=== PATIENT | female | born 1950 | race Caucasian/White ===

== ENCOUNTER 2019-06-11 10:26 | Outpatient (CLI) | payer MEDICARE, OTHER, SELFPAY ==
--- NOTE | 2019-06-11 10:44 | XR_ITS ---
WS: [id number] RIGHT RIBS, MULTIPLE VIEWS HISTORY: RIB PAIN ON RIGHT SIDE COMPARISON: 11/22/2017 Ribs: No rib fractures or bone destruction identified. Lungs and mediastinum: Visualized lung is clear. No pneumothorax or pulmonary contusion. Medial RIGHT humeral head osteophyte. XR/XR ribs RT 2V* [id number] IMPRESSION: No RIGHT rib fractures identified.
== END 2019-06-11 10:27 | disposition home or self-care (01) ==
LOC: RAD 10:34
PROVIDERS: Family Provider Family Medicine; PCP Family Medicine; Visit Provider Family Medicine
DX: R07.81 Pleurodynia (principal)
CPT/HCPCS: 71100

== ENCOUNTER → 2019-06-25 09:02 | Outpatient (BNVA) | payer MEDICARE, OTHER, SELFPAY | PROVIDERS: Family Provider Family Medicine; PCP Family Medicine; Visit Provider Family Medicine | DX: E11.9 Type 2 diabetes mellitus without complications (principal); E78.5 Hyperlipidemia, unspecified; K21.9 Gastro-esophageal reflux disease without esophagitis | CPT/HCPCS: 80053 ==

== ENCOUNTER 2019-08-20 13:24 | Outpatient (CLI) | payer MEDICARE, OTHER, SELFPAY ==
--- NOTE | 2019-08-20 13:51 | XR_ITS ---
WS: [id number] XR foot RT min 3V* [id number] REASON FOR EXAM: right foot pain FINDINGS: The phalanges, metatarsals, tarsals are all normal. The calcaneus was normal. The right left foot show no definite pathology. XR/XR foot RT min 3V* [id number] IMPRESSION: Negative bilateral feet.
--- NOTE | 2019-08-20 13:51 | XR_ITS ---
WS: [id number] XR foot LT 2V [id number] REASON FOR EXAM: left foot pain FINDINGS: Left foot shows normal appearance of the phalanges, metatarsals, and tarsals. The calcaneus is normal. XR/XR foot LT 2V [id number] IMPRESSION: Negative left foot.
== END 2019-08-20 13:25 | disposition home or self-care (01) ==
LOC: RAD 13:39
PROVIDERS: Family Provider Family Medicine; PCP Family Medicine; Visit Provider Podiatrist Foot & Ankle Surgery
DX: M79.671 Pain in right foot (principal); M79.672 Pain in left foot
CPT/HCPCS: 73620; 73630

== ENCOUNTER 2020-01-09 19:44 | Emergency (ER) | payer MEDICARE, OTHER, SELFPAY ==
[2020-01-09] VITALS (11 sets, daily range): BP systolic 155–220; BP diastolic 88–117; PULSE 84–102; RESP 17–22; TEMP 36.8; O2SAT 92–100; BMI 31.5
--- NOTE | 2020-01-09 20:23 | CTR_ITS ---
PROCEDURE INFORMATION: Exam: CT Head Without Contrast Exam date and time: 01/09/2020 8:29 PM Age: 69 years old Clinical indication: Pain; Headache; Additional info: GERMAIN TECHNIQUE: Imaging protocol: Computed tomography of the head without contrast. Radiation optimization: All CT scans at this facility use at least one of these dose optimization techniques: automated exposure control; mA and/or kV adjustment per patient size (includes targeted exams where dose is matched to clinical indication); or iterative reconstruction. COMPARISON: MRI Pituitary w/wo* [id number] 10/15/2015 9:00 AM RADIATION DOSE METRICS: Total DLP (mGy-cm): 840.41 FINDINGS: Brain: There is focal area of hemorrhage in the right posterior parietal region measuring 10.7 x 3.4 x 2.3 cm. The hemorrhage has a volume of approximately 4.5 cc. There is surrounding perifocal edema. There are a few tiny hemorrhage is adjacent to the larger hemorrhage in the region of edema. Ventricles: Ventricles are within normal limits of size. Bones/joints: Unremarkable. No acute fracture. Sinuses: Visualized sinuses are unremarkable. No fluid levels. Mastoid air cells: Visualized mastoid air cells are well aerated. Soft tissues: Unremarkable. CT/CT head wo con* [id number] IMPRESSION: Acute parenchymal hemorrhage as described. COMMENTS: Dr. Ramos expressed awareness of the acute intracranial hemorrhage via the OCS. Radiation Dose CTDIVOL = (mGy): DLP = 840.41 (mGy-cm)
--- NOTE | 2020-01-09 20:42 | W.ED.NEUROSD ---
HPI - Neuro Symptoms/Deficit General: Chief Complaint: Neuro Symptoms/Deficit Stated Complaint: migraine Time Seen by Provider: 01/09/20 20:23 Source: patient Mode of arrival: ambulatory Limitations: no limitations History of Present Illness: HPI Narrative: 69-year-old female states she is been having severe headache over the last 2 days. She states she has had some slight confusion as well. She states her headache is a 9 out of 10. She states it is gradually worsened. Denies any vomiting or diarrhea. Onset (ago): hour(s) Severity: moderate Associated symptoms: Reports headache(s); Deny chest pain, nausea or vomiting Review of Systems Const: Denies: fever(s), chills, body aches or change in appetite Eyes: Denies: blurry vision or eye discomfort ENMT: Denies: throat pain or dental pain Card: Denies: chest pain Resp: Denies: dyspnea GI: Denies: abdominal pain, nausea, vomiting or diarrhea : Denies: dysuria Musc: Denies: neck pain or back pain Skin/Breast: Denies: rash Neuro: Reports: headache(s) Psych: Denies: depression Rolan/Lymph: Denies: easy bruising All/Imm: Denies: urticaria PFSH ED PFSH: Medical History Carotid artery occlusion Chronic low back pain Controlled type 2 diabetes mellitus, without long-term current use of insulin Dyslipidemia Essential (primary) hypertension GERD (gastroesophageal reflux disease) Intervertebral disc disorders with radiculopathy, lumbosacral region Non-alcoholic fatty liver disease Osteoarthritis of multiple joints Surgical History History of hip replacement, total right S/P appendectomy S/P cholecystectomy S/P partial hysterectomy Family History Father CAD (coronary artery disease) Mother Cancer breast Family/Other Diabetes Social History Smoking and tobacco status: never smoked Lives independently: Yes Household members: spouse Marital status: Physical Exam Const: COMMON NORMALS: no acute distress, patient oriented x3 and healthy appearing HENMT: COMMON NORMALS: normocephalic and atraumatic HEAD & SCALP: normocephalic and atraumatic Eye: COMMON NORMALS: Equal, round and reactive pupils present and EOMs intact bilaterally PUPIL: Yes Equal, round and reactive pupils present Neck/C-Spine: COMMON NORMALS: full ROM and supple Chest: COMMONS NORMALS: normal inspection of the chest and normal palpation of entire chest wall Resp: COMMON NORMALS: normal respiratory effort, No retractions, No use of accessory muscles and clear to auscultation bilaterally AUSCULTATION: clear to auscultation bilaterally Cardio: COMMON NORMALS: regular rate, regular rhythm and No murmurs present (Cardio) RATE: regular rate RHYTHM: regular rhythm GI: COMMON NORMALS: Normal to inspection, nondistended, normoactive bowel sounds present, Soft to palpation, non-tender and no masses PALPATION: Yes Soft to palpation Extremity: COMMON NORMALS: normal to inspection and full ROM Neuro: COMMON NORMALS: patient oriented x3, moves all extremities and no focal motor deficits Psych: COMMON NORMALS: mental status grossly normal, Normal thought process present and cooperative THOUGHT PROCESS: Normal thought process present Skin: COMMON NORMALS: no rashes or lesions noted and no wounds GENERAL SKIN EXAM: no rashes or lesions noted Course Vital Signs: Vital signs: Vital Signs Temperature 98.3 F 01/09/20 20:18 Pulse Rate 99 01/09/20 21:32 Respiratory Rate 18 01/09/20 21:32 Blood Pressure 195/97 01/09/20 21:32 Pulse Oximetry 94 01/09/20 21:32 MDM - Neuro Symptoms/Deficit MDM Narrative: Medical decision making narrative: Millie presents here with a headache and is found to have an intracerebral hemorrhage likely from high blood pressure. Patient given labetalol and started on a Cardene drip. I did call Ghislaine and Mitch and both are on divert. I spoke to neurosurgeon at [facility] [place] and will transfer patient there emergently. Patient has been stable here with a GCS of 15. Lab Data: Labs: Lab Results 01/09/20 01/09/20 Range/Units 20:51 20:51 WBC 14.6 H (4.0-10.0) 10^3/ uL RBC 5.12 (4.1-5.3) 10^6/u L Hgb 14.5 (11.5-15.3) g/dL Hct 43.7 (37.0-47.0) % MCV 85.4 (81-99) fL MCH 28.3 (28.0-34.0) pg MCHC 33.2 (30.0-36.0) g/dL RDW 12.2 (12.1-15.1) % Plt Count 209 (130-400) 10^3/c mm MPV 11.1 H (7.4-10.4) fL Neut % (Auto) 85.1 % Lymph % (Auto) 9.4 % Sargent % (Auto) 4.9 % Eos % (Auto) 0.0 % Baso % (Auto) 0.1 % Neut # (Auto) 12.45 H (1.8-7.7) 10^3/u L Lymph # (Auto) 1.4 (0.8-4.8) 10^3/u L Sargent # (Auto) 0.7 (0.2-0.9) 10^3/u L Eos # (Auto) 0.0 (0.0-0.8) 10^3/u L Baso # (Auto) 0.0 (0.0-0.1) 10^3/u L Nucleated RBC % (a uto) 0 % Nucleated RBCs # 0.0 /100WBC Sodium 136 (136-145) mmol/L Potassium 3.4 L (3.5-5.1) mmol/L Chloride 97 L (98-107) mmol/L Carbon Dioxide 26 (22-29) mmol/L Anion Gap 16.4 (5-19) BUN 12 (8-23) mg/dL Creatinine 0.7 (0.5-0.9) mg/dL GFR Calculation Not Reportable Glucose 216 H (65-115) mg/dL Calculated Osmolal ity 285 (285-295) mOsm/k g Calcium 10.0 (8.5-10.5) mg/dL Total Bilirubin 1.6 H (0.15-1.2) mg/dL AST 18 (0-32) U/L ALT 13 (0-33) U/L Alkaline Phosphata se 136 H (35-105) IU/L Total Protein 7.7 (6.6-8.7) g/dL Albumin 4.9 (3.5-5.2) g/dL Globulin 2.8 (1.3-4.6) g/dL Imaging Data^: CT Head: Radiologist's impression: [address] [place] [address] CT Scan Report Signed Patient: Millie Finley Unit #: [id number] : 1950 Age/Sex: 69 / F ADM Date: 01/09/20 Loc: ER Room/Bed: Attending Dr: Ordering Provider/Ordering MD: Claudia Ramos MD Date of Service: 01/09/20 Procedure(s): CT head wo con* [id number] Accession Number(s): [id number] Report Number: [id number] PROCEDURE INFORMATION: Exam: CT Head Without Contrast Exam date and time: 01/09/2020 8:29 PM Age: 69 years old Clinical indication: Pain; Headache; Additional info: GERMAIN TECHNIQUE: Imaging protocol: Computed tomography of the head without contrast. Radiation optimization: All CT scans at this facility use at least one of these dose optimization techniques: automated exposure control; mA and/or kV adjustment per patient size (includes targeted exams where dose is matched to clinical indication); or iterative reconstruction. COMPARISON: MRI Pituitary w/wo* [id number] 10/15/2015 9:00 AM RADIATION DOSE METRICS: Total DLP (mGy-cm): 840.41 FINDINGS: Brain: There is focal area of hemorrhage in the right posterior parietal region measuring 10.7 x 3.4 x 2.3 cm. The hemorrhage has a volume of approximately 4.5 cc. There is surrounding perifocal edema. There are a few tiny hemorrhage is adjacent to the larger hemorrhage in the region of edema. Ventricles: Ventricles are within normal limits of size. Bones/joints: Unremarkable. No acute fracture. Sinuses: Visualized sinuses are unremarkable. No fluid levels. Mastoid air cells: Visualized mastoid air cells are well aerated. Soft tissues: Unremarkable. CT/CT head wo con* [id number] IMPRESSION: Acute parenchymal hemorrhage as described. Critical Care Time Critical Care Time: Critical Care Time: Yes Total Critical Care Time: 36 Attestation: This case had a high probability of a clinically significant, sudden, or life threatening deterioration of this patient's condition which required my full and direct attention, intervention and personal management. Discharge Plan Discharge Patient Disposition: Xfer Other Clinical Impression: Cerebral parenchymal hemorrhage Qualifiers: Intracerebral hemorrhage etiology: nontraumatic Cerebral hemorrhage location: unspecified cerebral location Laterality: right Qualified Code(s): I61.9 - Nontraumatic intracerebral hemorrhage, unspecified Condition: Stable Referrals: Veronika Batres DO [Primary Care Provider] - Coding Level of Care Code ED Communication Professor for Chg Fwd Exam Comprehensive
[2020-01-09] MEDS: nicardipine 20 MG/200 ML PREMIX 100 MG IV (21:04)
[2020-01-09 21:07] LABS: Basophils % 0.1 %; Hematocrit 43.7 % (37.0-47.0); Hemoglobin 14.5 g/dL (11.5-15.3); Lymphocytes # 1.4 10^3/uL (0.8-4.8); Lymphocytes % 9.4 %; Mean Corpuscular HGB Conc 33.2 g/dL (30.0-36.0); Mean Corpuscular Hemoglobin 28.3 pg (28.0-34.0); Mean Corpuscular Volume 85.4 fL (81-99); Mean Platelet Volume 11.1 fL (7.4-10.4); Monocytes # 0.7 10^3/uL (0.2-0.9); Monocytes % 4.9 %; Neutrophils # 12.45 10^3/uL (1.8-7.7); Neutrophils % 85.1 %; Nucleated Red Blood Cells % 0 %; Platelet Count 209 10^3/cmm (130-400); Red Blood Count 5.12 10^6/uL (4.1-5.3); Red Cell Distribution Width 12.2 % (12.1-15.1); White Blood Count 14.6 10^3/uL (4.0-10.0)
[2020-01-09] MEDS: morphine 4 mg/mL SDV 1 mL IVP (21:24)
[2020-01-09 21:29] LABS: Alanine Aminotransferase 13 U/L (0-33); Albumin Level 4.9 g/dL (3.5-5.2); Alkaline Phosphatase 136 IU/L (35-105); Anion Gap 16.4 (5-19); Aspartate Amino Transferase 18 U/L (0-32); Blood Urea Nitrogen 12 mg/dL (8-23); Carbon Dioxide 26 mmol/L (22-29); Chloride 97 mmol/L (98-107); Globulin 2.8 g/dL (1.3-4.6); Glucose 216 mg/dL (65-115); Osmolality Calculated 285 mOsm/kg (285-295); Potassium 3.4 mmol/L (3.5-5.1); Sodium 136 mmol/L (136-145); Total Bilirubin 1.6 mg/dL (0.15-1.2); Total Protein 7.7 g/dL (6.6-8.7)
[2020-01-09] MEDS: labetalol 5 mg/mL SDV 20mL 10 MG IVP ×2 (21:33→21:40)
--- NOTE | 2020-01-09 21:41 | PC.NURSE ---
advised Dr. Ramos of BP, Dr. Ramos ordered Cardene to be maintained at 15 mg/hr at this time
[2020-01-09] MEDS: diphenhydrAMINE 50 mg/mL SDV 1mL 25 MG IVP (22:05)
[2020-01-09] MEDS: sodium chloride 0.9% 1,000 ML 999 ML IV (22:06)
[2020-01-09] MEDS: metoclopramide 5 mg/mL SDV 2 mL IVP (22:06)
== END 2020-01-09 22:11 | disposition other institution (70) ==
PROVIDERS: Emergency Provider Emergency Medicine; PCP Family Medicine
DX: I61.9 Nontraumatic intracerebral hemorrhage, unspecified (principal); E11.9 Type 2 diabetes mellitus without complications; E78.5 Hyperlipidemia, unspecified; I10 Essential (primary) hypertension
CPT/HCPCS: 12345; 70450; 80053; 85025; 96365; 96366; 96375; 99283; 99285; J1200; J1953; J2270; J2765; J3490; J7030

== ENCOUNTER 2020-01-14 09:41 | Outpatient (RCR) | payer MEDICARE, OTHER, SELFPAY | END 2020-01-14 23:00 | disposition home or self-care (01) | LOC: SPO 09:41 | PROVIDERS: PCP Family Medicine; Referring Provider Internal Medicine; Visit Provider Internal Medicine | DX: I69.90 Unspecified sequelae of unspecified cerebrovascular disease (principal) | CPT/HCPCS: 97161; 97166 ==

== ENCOUNTER → 2020-01-16 12:12 | Outpatient (BNVA) | payer MEDICARE, OTHER, SELFPAY | PROVIDERS: PCP Family Medicine; Visit Provider Family Medicine | DX: E11.9 Type 2 diabetes mellitus without complications (principal); E78.5 Hyperlipidemia, unspecified; I10 Essential (primary) hypertension | CPT/HCPCS: 80053; 80061; 82043; 83036; 85025; 87086 ==

== ENCOUNTER → 2020-04-13 09:06 | Outpatient (BNVA) | payer MEDICARE, OTHER, SELFPAY | PROVIDERS: PCP Family Medicine; Visit Provider Family Medicine | DX: E11.9 Type 2 diabetes mellitus without complications (principal) | CPT/HCPCS: 80053; 80061; 83036 ==

== ENCOUNTER 2020-07-27 11:34 | Observation (INO) | payer MEDICARE, OTHER, SELFPAY ==
[2020-07-27] VITALS (8 sets, daily range): BP systolic 118–156; BP diastolic 58–112; PULSE 67–117; RESP 16–18; TEMP 36.5–36.9; O2SAT 94–96; BMI 33.5
--- NOTE | 2020-07-27 11:46 | XR_ITS ---
WS: [id number] Exam: XR chest 1V portable [id number] Date/Time of Exam: 07/27/2020 11:55 AM Reason For Exam: reduced breath sounds Comparison 06/11/2019. Findings: The lungs are clear and fully expanded. Costophrenic angles are sharp. No infiltrates. Bronchovascula r relief appears normal. Cardiac silhouette is unremarkable. Bony elements are intact. XR/XR chest 1V portable [id number] IMPRESSION: Unremarkable chest radiograph.
--- NOTE | 2020-07-27 11:49 | ECG_ITS ---
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 Measurements Intervals [place] Rate: 96 P: 23 RI: 176 QRS: -37 QRSD: 103 T: 29 QT: 355 QTc: 450 Interpretive Statements SINUS RHYTHM LEFT AXIS DEVIATION [QRS AXIS < -30] VOLTAGE CRITERIA FOR LVH [MEETS CRITERIA IN ONE OF: R(aVL), S(V1), R(V5), R(V5/V6)+S(V1)] POSSIBLE ANTERIOR MYOCARDIAL INFARCTION , PROBABLY OLD [30 ms Q WAVE IN V3/V4, OR R < 0.2 mV IN V4] No previous ECG available for comparison Electronically Signed On 07-27-2020 12:36:01 JACK SETTER by Kassidy Bearden M.D. [email or web address]
[2020-07-27 11:51] LABS: Glucose Point of Care 500 mg/dL (70-110)
[2020-07-27 11:58] LABS: ABG PCO2 40.8 mmHg (35-45); ABG PH Result 7.44 (7.35-7.45); Alveolar-Arterial Oxygen Gradi 3.2 mmHg (5-10); Arterial Blood Gas Hematocrit 47.6 % (37-47); Base Excess ABG 3.3 mmol/L (-2.0-2.0); Blood Gas Allen Test Pos; Blood Gas Operator Identificat CAK; Blood Gas Sample Site Radial, left; Blood Gas Sample Type Arterial; HCO3 ABG 27.8 mmol/L (22-26); HGB O2 Sat 94.6 % (95-100); Ionized Calcium Level - ABG 1.2 mmol/L (1.1-1.4); Methemoglobin 0.7 % (0.4-1.5); Oxygen Device ROOM AIR; Oxygen Saturation ABG 96.1; PO2 ABG 74.5 mmHg (80.0-100.0); Potassium Level - ABG 3.7 mmol/L (3.5-5.0); Total Hemoglobin 15.5 g/dL (12-16)
[2020-07-27 12:21] LABS: Glucose Point of Care 476 mg/dL (70-110)
[2020-07-27 12:22] LABS: Add Urine Microscopic? NO
[2020-07-27] MEDS: insulin regular-human 100 units/1 mL 10 UNIT IVP (12:34)
[2020-07-27] MEDS: sodium chloride 0.9% 1,000 ML 999 ML IV (12:34)
[2020-07-27 12:41] LABS: Specific Gravity, Urine 1.015 (1.005-1.030); Urine Appearance Clear (CLEAR); Urine Color Straw (Yellow); pH Urine 5 (5-7)
[2020-07-27 12:42] LABS: Basophils % 0.3 %; Eosinophils # 0.1 10^3/uL (0.0-0.8); Eosinophils % 1.2 %; Hematocrit 45.2 % (37.0-47.0); Hemoglobin 14.5 g/dL (11.5-15.3); Lymphocytes # 1.6 10^3/uL (0.8-4.8); Lymphocytes % 15.2 %; Mean Corpuscular HGB Conc 32.1 g/dL (30.0-36.0); Mean Corpuscular Hemoglobin 27.5 pg (28.0-34.0); Mean Corpuscular Volume 85.8 fL (81-99); Mean Platelet Volume 12.4 fL (7.4-10.4); Monocytes # 0.7 10^3/uL (0.2-0.9); Monocytes % 6.9 %; Neutrophils # 7.88 10^3/uL (1.8-7.7); Nucleated Red Blood Cells % 0 %; Platelet Count 173 10^3/cmm (130-400); Red Blood Count 5.27 10^6/uL (4.1-5.3); White Blood Count 10.4 10^3/uL (4.0-10.0)
[2020-07-27 12:42] LABS: Bilirubin Urine Neg (Negative); Blood Urine Neg (Negative); Glucose Urine UA 4+ (Normal); Ketones Urine Negative (Negative); Leukocyte Esterase Urine Negative (Negative); Nitrate Urine Negative (Negative); Protein Urine Neg (Negative); Urobilinogen Urine Norm (Negative)
[2020-07-27 13:03] LABS: Ketone (Acetest) Serum Negative (Negative)
[2020-07-27 13:07] LABS: Lactate (Lactic Acid level) 2.8 mmol/L (0.5-2.2)
[2020-07-27 13:09] LABS: Troponin(5th) Baseline 8 ng/L (0-10)
[2020-07-27 13:11] LABS: Glucose Point of Care 394 mg/dL (70-110)
[2020-07-27 13:15] LABS: Alanine Aminotransferase 21 U/L (0-33); Albumin Level 4.2 g/dL (3.5-5.2); Alkaline Phosphatase 177 IU/L (35-105); Aspartate Amino Transferase 16 U/L (0-32); Blood Urea Nitrogen 16 mg/dL (8-23); Calcium 9.3 mg/dL (8.5-10.5); Carbon Dioxide 25 mmol/L (22-29); Chloride 92 mmol/L (98-107); Globulin 2.7 g/dL (1.3-4.6); Osmolality Calculated 296 mOsm/kg (285-295); Sodium 131 mmol/L (136-145); Total Bilirubin 1.3 mg/dL (0.15-1.2); Total Protein 6.9 g/dL (6.6-8.7)
[2020-07-27 13:20] LABS: Glucose 508 mg/dL (65-115)
--- NOTE | 2020-07-27 13:36 | W.ED.GENADLT ---
HPI - General Adult General: Chief complaint: General Medical Stated complaint: HIGH BLOOD SUGAR (500) Time Seen by Provider: 07/27/20 11:44 History of Present Illness: HPI narrative: The patient is a 70-year-old female known diabetic with oral medications who comes to the ER complaining of a few days dry mouth and increased urination. Glucose 500 on arrival denies chest pain, shortness of breath, abdominal pain, nausea, vomiting, diarrhea. Severity: moderate Associated symptoms: Reports no associated symptoms; Deny chest pain, confusion, dyspnea, headache(s), rash or palpitations Review of Systems General: Reports: 10 or more systems reviewed and unremarkable except in HPI and below Const: Denies: fatigue Eyes: Denies: change in vision, blurry vision or eye redness ENMT: Denies: throat pain, swelling of lips/tongue, ear or mastoid pain or nasal congestion Card: Denies: chest pain, palpitations, irregular heart rhythm, edema, dyspnea on exertion or orthopnea Resp: Denies: dyspnea, productive cough or non-productive cough GI: Denies: abdominal pain, diarrhea or GI cramping : Denies: flank pain, difficulty voiding, urinary frequency or urinary urgency Musc: Denies: neck pain, back pain, extremity pain, joint pain, joint redness, limited range of motion or muscle weakness Skin/Breast: Denies: rash, pruritus, erythema, skin pain or skin tenderness Neuro: Denies: headache(s), numbness in extremities, weakness in extremities, sensory changes, difficulty walking, dizziness, confusion or Slurred speech present Psych: Denies: anxiety or depression Endo: Denies: polyuria All/Imm: Denies: urticaria, throat swelling or tongue swelling PFSH ED PFSH: Medical History (Updated 07/27/20 @ 14:44 by Ivan Osorio MD) Carotid artery occlusion Chronic low back pain Controlled type 2 diabetes mellitus, without long-term current use of insulin Dyslipidemia Essential (primary) hypertension GERD (gastroesophageal reflux disease) Intervertebral disc disorders with radiculopathy, lumbosacral region Non-alcoholic fatty liver disease Osteoarthritis of multiple joints Surgical History History of hip replacement, total right S/P appendectomy S/P cholecystectomy S/P partial hysterectomy Family History Father CAD (coronary artery disease) Mother Cancer breast Family/Other Diabetes Social History Smoking and tobacco status: never smoked Lives independently: Yes Household members: spouse Marital status: Physical Exam Const: COMMON NORMALS: no acute distress, average body habitus, patient oriented x3, no limitations, healthy appearing, alert and well nourished GENERAL APPEARANCE: cooperative, comfortable, well kempt and well developed ORIENTATION/CONSCIOUSNESS: Yes awake, Yes oriented to person, Yes oriented to place and Yes oriented to time HENMT: COMMON NORMALS: normocephalic, external ears normal and Normal external nose present HEAD & SCALP: normal to inspection and normocephalic NOSE: Normal external nose present EXTERNAL EAR: Yes external ears normal MOUTH: Normal oral and palatal mucosa present THROAT: posterior oropharynx normal Eye: COMMON NORMALS: Equal, round and reactive pupils present and EOMs intact bilaterally GENERAL EYE: appearance normal, both eyes and all related structures PUPIL: Yes Equal, round and reactive pupils present Neck/C-Spine: COMMON NORMALS: full ROM, no lymphadenopathy, no meningeal signs and no JVD GENERAL: Yes normal visual inspection Lymph: LYMPHATIC: no lymphadenopathy noted Chest: COMMONS NORMALS: normal inspection of the chest and normal palpation of entire chest wall Resp: COMMON NORMALS: normal respiratory effort, No retractions, No use of accessory muscles, clear to auscultation bilaterally and percussion normal EFFORT & INSPECTION: Yes able to speak in complete sentences AUSCULTATION: clear to auscultation bilaterally PERCUSSION: percussion normal Cardio: COMMON NORMALS: no JVD, regular rate, regular rhythm, S1 normal heart sound present, S2 normal heart sound present and Peripheral pulses 2+ throughout RATE: regular rate RHYTHM: regular rhythm HEART SOUNDS: S1 normal heart sound present and S2 normal heart sound present PERIPHERAL PULSES: Peripheral pulses 2+ throughout GI: COMMON NORMALS: Normal to inspection, nondistended, normoactive bowel sounds present, Soft to palpation, non-tender and no masses INSPECTION: Yes normal to inspection PALPATION: Yes Soft to palpation : COMMON NORMALS: Yes no CVA tenderness BLADDER/KIDNEY EXAM: Yes no CVA tenderness Back/Pelvis: COMMON NORMALS: no CVA tenderness, thoracic and lumbar spine normal to inspection, no thoracic nor lumbar tenderness and thoraco-lumbar ROM normal Extremity: COMMON NORMALS: normal to inspection, full ROM, capillary refill normal, no joint enlargement and no pedal edema GENERAL: Yes normal exam except as noted Neuro: COMMON NORMALS: patient oriented x3, CN's II-XII intact bilaterally, moves all extremities, no focal motor deficits, no sensory deficits noted and gait normal SENSORIUM/ORIENTATION: Yes alert, Yes oriented to person, Yes oriented to place and Yes oriented to time MENINGEAL SIGNS: Yes no meningeal signs Psych: COMMON NORMALS: mental status grossly normal, Normal thought process present, cooperative, normal affect and speech normal APPEARANCE: Yes well kempt ATTITUDE: Yes calm SPEECH: Yes normal speech THOUGHT PROCESS: Normal thought process present Skin: COMMON NORMALS: no rashes or lesions noted NARRATIVE SKIN EXAM: Dry mucous membranes of the mouth GENERAL SKIN EXAM: no rashes or lesions noted Course Vital Signs: Vital signs: Vital Signs Temperature 97.7 F 07/27/20 11:44 Pulse Rate 117 H 07/27/20 11:44 Respiratory Rate 18 07/27/20 14:15 Blood Pressure 118/73 07/27/20 14:15 Pulse Oximetry 95 07/27/20 14:15 MDM - General Adult MDM Narrative: Medical decision making narrative: She came in with a glucose of 500 and was given IV insulin. Normal pH. No ketones. Hyperosmolar hyperglycemic state. She was also given IV fluids with some improvement of her glucose. Discussed with Dr. Franklin who accepts to floor. Lab Data: Labs: Lab Results 07/27/20 07/27/20 07/27/20 Range/Units 11:47 11:49 12:08 WBC (4.0-10.0) 10^3/ uL RBC (4.1-5.3) 10^6/u L Hgb (11.5-15.3) g/dL Hct (37.0-47.0) % MCV (81-99) fL MCH (28.0-34.0) pg MCHC (30.0-36.0) g/dL RDW (12.1-15.1) % Plt Count (130-400) 10^3/c mm MPV (7.4-10.4) fL Neut % (Auto) % Lymph % (Auto) % [place] % (Auto) % Eos % (Auto) % Baso % (Auto) % Neut # (Auto) (1.8-7.7) 10^3/u L Lymph # (Auto) (0.8-4.8) 10^3/u L [place] # (Auto) (0.2-0.9) 10^3/u L Eos # (Auto) (0.0-0.8) 10^3/u L Baso # (Auto) (0.0-0.1) 10^3/u L Nucleated RBC % (a uto) % Nucleated RBCs # /100WBC Specimen Type Arterial Sample Site Radial, left ABG pH 7.44 (7.35-7.45) ABG pCO2 40.8 (35-45) mmHg ABG pO2 74.5 L (80.0-100.0) mmH g ABG HCO3 27.8 H (22-26) mmol/L ABG O2 Saturation 96.1 ABG Base Excess 3.3 H (-2.0-2.0) mmol/ L Best Test Pos A-a O2 Gradient 3.2 L (5-10) mmHg Hematocrit 47.6 H (37-47) % Hgb O2 Saturation 94.6 L (95-100) % Carboxyhemoglobin 1.0 (0.4-20.1) %THgb Methemoglobin 0.7 (0.4-1.5) % Total Hemoglobin 15.5 (12-16) g/dL Sodium 134.0 (131-143) mmol/L Potassium 3.7 (3.5-5.0) mmol/L Glucose 559.0 H (70-115) mg/dL Ionized Calcium 1.2 (1.1-1.4) mmol/L O2 Delivery Device Room air FiO2 21.0 % Special Procedures Tech ID Cak Chloride (98-107) mmol/L Carbon Dioxide (22-29) mmol/L Anion Gap (5-19) BUN (8-23) mg/dL Creatinine (0.5-0.9) mg/dL GFR Calculation POC Glucose 500 H (70-110) mg/dL Calculated Osmolal ity (285-295) mOsm/k g Lactate (0.5-2.2) mmol/L Calcium (8.5-10.5) mg/dL Total Bilirubin (0.15-1.2) mg/dL AST (0-32) U/L ALT (0-33) U/L Alkaline Phosphata se (35-105) IU/L Troponin T Baselin e (0-10) ng/L Total Protein (6.6-8.7) g/dL Albumin (3.5-5.2) g/dL Globulin (1.3-4.6) g/dL Urine Color Straw (Yellow) Urine Appearance Clear (CLEAR) Urine pH 5 (5-7) Ur Specific Gravit y 1.015 (1.005-1.030) Urine Protein Neg (Negative) Urine Glucose (UA) 4+ H (Normal) Urine Ketones Negative (Negative) Urine Blood Neg (Negative) Urine Nitrate Negative (Negative) Urine Bilirubin Neg (Negative) Urine Urobilinogen Norm (Negative) mg/dL Ur Leukocyte Gayle ase Negative (Negative) Serum Ketones (Negative) 07/27/20 07/27/20 07/27/20 Range/Units 12:19 12:22 12:22 WBC 10.4 H (4.0-10.0) 10^3/ uL RBC 5.27 (4.1-5.3) 10^6/u L Hgb 14.5 (11.5-15.3) g/dL Hct 45.2 (37.0-47.0) % MCV 85.8 (81-99) fL MCH 27.5 L (28.0-34.0) pg MCHC 32.1 (30.0-36.0) g/dL RDW 12.0 L (12.1-15.1) % Plt Count 173 (130-400) 10^3/c mm MPV 12.4 H (7.4-10.4) fL Neut % (Auto) 76.0 % Lymph % (Auto) 15.2 % [place] % (Auto) 6.9 % Eos % (Auto) 1.2 % Baso % (Auto) 0.3 % Neut # (Auto) 7.88 H (1.8-7.7) 10^3/u L Lymph # (Auto) 1.6 (0.8-4.8) 10^3/u L [place] # (Auto) 0.7 (0.2-0.9) 10^3/u L Eos # (Auto) 0.1 (0.0-0.8) 10^3/u L Baso # (Auto) 0.0 (0.0-0.1) 10^3/u L Nucleated RBC % (a uto) 0 % Nucleated RBCs # 0.0 /100WBC Specimen Type Sample Site ABG pH (7.35-7.45) ABG pCO2 (35-45) mmHg ABG pO2 (80.0-100.0) mmH g ABG HCO3 (22-26) mmol/L ABG O2 Saturation ABG Base Excess (-2.0-2.0) mmol/ L Best Test A-a O2 Gradient (5-10) mmHg Hematocrit (37-47) % Hgb O2 Saturation (95-100) % Carboxyhemoglobin (0.4-20.1) %THgb Methemoglobin (0.4-1.5) % Total Hemoglobin (12-16) g/dL Sodium 131 L (131-143) mmol/L Potassium 4.0 (3.5-5.0) mmol/L Glucose 508 H* (70-115) mg/dL Ionized Calcium (1.1-1.4) mmol/L O2 Delivery Device FiO2 % Special Procedures Tech ID Chloride 92 L (98-107) mmol/L Carbon Dioxide 25 (22-29) mmol/L Anion Gap 18.0 (5-19) BUN 16 (8-23) mg/dL Creatinine 0.6 (0.5-0.9) mg/dL GFR Calculation Not Reportable POC Glucose 476 H (70-110) mg/dL Calculated Osmolal ity 296 H (285-295) mOsm/k g Lactate (0.5-2.2) mmol/L Calcium 9.3 (8.5-10.5) mg/dL Total Bilirubin 1.3 H (0.15-1.2) mg/dL AST 16 (0-32) U/L ALT 21 (0-33) U/L Alkaline Phosphata se 177 H (35-105) IU/L Troponin T Baselin e (0-10) ng/L Total Protein 6.9 (6.6-8.7) g/dL Albumin 4.2 (3.5-5.2) g/dL Globulin 2.7 (1.3-4.6) g/dL Urine Color (Yellow) Urine Appearance (CLEAR) Urine pH (5-7) Ur Specific Gravit y (1.005-1.030) Urine Protein (Negative) Urine Glucose (UA) (Normal) Urine Ketones (Negative) Urine Blood (Negative) Urine Nitrate (Negative) Urine Bilirubin (Negative) Urine Urobilinogen (Negative) mg/dL Ur Leukocyte Gayle ase (Negative) Serum Ketones (Negative) 07/27/20 07/27/20 07/27/20 Range/Units 12:22 12:22 12:22 WBC (4.0-10.0) 10^3/ uL RBC (4.1-5.3) 10^6/u L Hgb (11.5-15.3) g/dL Hct (37.0-47.0) % MCV (81-99) fL MCH (28.0-34.0) pg MCHC (30.0-36.0) g/dL RDW (12.1-15.1) % Plt Count (130-400) 10^3/c mm MPV (7.4-10.4) fL Neut % (Auto) % Lymph % (Auto) % [place] % (Auto) % Eos % (Auto) % Baso % (Auto) % Neut # (Auto) (1.8-7.7) 10^3/u L Lymph # (Auto) (0.8-4.8) 10^3/u L [place] # (Auto) (0.2-0.9) 10^3/u L Eos # (Auto) (0.0-0.8) 10^3/u L Baso # (Auto) (0.0-0.1) 10^3/u L Nucleated RBC % (a uto) % Nucleated RBCs # /100WBC Specimen Type Sample Site ABG pH (7.35-7.45) ABG pCO2 (35-45) mmHg ABG pO2 (80.0-100.0) mmH g ABG HCO3 (22-26) mmol/L ABG O2 Saturation ABG Base Excess (-2.0-2.0) mmol/ L Best Test A-a O2 Gradient (5-10) mmHg Hematocrit (37-47) % Hgb O2 Saturation (95-100) % Carboxyhemoglobin (0.4-20.1) %THgb Methemoglobin (0.4-1.5) % Total Hemoglobin (12-16) g/dL Sodium (131-143) mmol/L Potassium (3.5-5.0) mmol/L Glucose (70-115) mg/dL Ionized Calcium (1.1-1.4) mmol/L O2 Delivery Device FiO2 % Special Procedures Tech ID Chloride (98-107) mmol/L Carbon Dioxide (22-29) mmol/L Anion Gap (5-19) BUN (8-23) mg/dL Creatinine (0.5-0.9) mg/dL GFR Calculation POC Glucose (70-110) mg/dL Calculated Osmolal ity (285-295) mOsm/k g Lactate 2.8 H (0.5-2.2) mmol/L Calcium (8.5-10.5) mg/dL Total Bilirubin (0.15-1.2) mg/dL AST (0-32) U/L ALT (0-33) U/L Alkaline Phosphata se (35-105) IU/L Troponin T Baselin e 8 (0-10) ng/L Total Protein (6.6-8.7) g/dL Albumin (3.5-5.2) g/dL Globulin (1.3-4.6) g/dL Urine Color (Yellow) Urine Appearance (CLEAR) Urine pH (5-7) Ur Specific Gravit y (1.005-1.030) Urine Protein (Negative) Urine Glucose (UA) (Normal) Urine Ketones (Negative) Urine Blood (Negative) Urine Nitrate (Negative) Urine Bilirubin (Negative) Urine Urobilinogen (Negative) mg/dL Ur Leukocyte Gayle ase (Negative) Serum Ketones Negative (Negative) 07/27/20 Range/Units 13:08 WBC (4.0-10.0) 10^3/ uL RBC (4.1-5.3) 10^6/u L Hgb (11.5-15.3) g/dL Hct (37.0-47.0) % MCV (81-99) fL MCH (28.0-34.0) pg MCHC (30.0-36.0) g/dL RDW (12.1-15.1) % Plt Count (130-400) 10^3/c mm MPV (7.4-10.4) fL Neut % (Auto) % Lymph % (Auto) % [place] % (Auto) % Eos % (Auto) % Baso % (Auto) % Neut # (Auto) (1.8-7.7) 10^3/u L Lymph # (Auto) (0.8-4.8) 10^3/u L [place] # (Auto) (0.2-0.9) 10^3/u L Eos # (Auto) (0.0-0.8) 10^3/u L Baso # (Auto) (0.0-0.1) 10^3/u L Nucleated RBC % (a uto) % Nucleated RBCs # /100WBC Specimen Type Sample Site ABG pH (7.35-7.45) ABG pCO2 (35-45) mmHg ABG pO2 (80.0-100.0) mmH g ABG HCO3 (22-26) mmol/L ABG O2 Saturation ABG Base Excess (-2.0-2.0) mmol/ L Best Test A-a O2 Gradient (5-10) mmHg Hematocrit (37-47) % Hgb O2 Saturation (95-100) % Carboxyhemoglobin (0.4-20.1) %THgb Methemoglobin (0.4-1.5) % Total Hemoglobin (12-16) g/dL Sodium (131-143) mmol/L Potassium (3.5-5.0) mmol/L Glucose (70-115) mg/dL Ionized Calcium (1.1-1.4) mmol/L O2 Delivery Device FiO2 % Special Procedures Tech ID Chloride (98-107) mmol/L Carbon Dioxide (22-29) mmol/L Anion Gap (5-19) BUN (8-23) mg/dL Creatinine (0.5-0.9) mg/dL GFR Calculation POC Glucose 394 H (70-110) mg/dL Calculated Osmolal ity (285-295) mOsm/k g Lactate (0.5-2.2) mmol/L Calcium (8.5-10.5) mg/dL Total Bilirubin (0.15-1.2) mg/dL AST (0-32) U/L ALT (0-33) U/L Alkaline Phosphata se (35-105) IU/L Troponin T Baselin e (0-10) ng/L Total Protein (6.6-8.7) g/dL Albumin (3.5-5.2) g/dL Globulin (1.3-4.6) g/dL Urine Color (Yellow) Urine Appearance (CLEAR) Urine pH (5-7) Ur Specific Gravit y (1.005-1.030) Urine Protein (Negative) Urine Glucose (UA) (Normal) Urine Ketones (Negative) Urine Blood (Negative) Urine Nitrate (Negative) Urine Bilirubin (Negative) Urine Urobilinogen (Negative) mg/dL Ur Leukocyte Gayle ase (Negative) Serum Ketones (Negative) Discharge Plan Discharge Patient Disposition: Placed in Observation Admit Provider: Pricilla Franklin Clinical Impression: Acute hyperglycemia Coding Level of Care Code ED Propellant Charge Loader for Chg Fwd Exam Comprehensive
[2020-07-27 14:32] LABS: Glucose Point of Care 350 mg/dL (70-110)
--- NOTE | 2020-07-27 15:03 | PC.NURSE ---
Attempting to call report for the 2nd time at 1450, still on hold at 1503.
[2020-07-27 16:46] LABS: Estmated Average Glucose 258; Hemoglobin A1C 10.6 % (4.0-6.0)
[2020-07-27 17:21] LABS: Glucose Point of Care 266 mg/dL (70-110)
--- NOTE | 2020-07-27 17:34 | P.HP_ITS ---
Providers/Chief Complaint Admitting Physician: Pricilla Franklin MD Primary Care Provider: Veronika Batres DO Chief Complaint: HIGH BLOOD SUGAR (500) History of Present Illness Millie Finley is a 70 year old female with PMH DM who has been out of her DM medications after running out of refills on Jul, and therefore has not been taking her prescribed invokana or sitagliptin. Also reports inability to strictly adhere to a carb consistent diet since May 2020. presented today with feeling dehydarted, mouth dryness, generalized malaise and discomofrt. Blood sugar found to be >500, received 10 units insulin in the ER, 1 hr later Blood sugar continued to be >500, ERP requested admission for blood sugar management. Normal anion gap. No kentonuria. Review of Systems General: Reports: 10 or more systems reviewed and unremarkable except in HPI and below Const: Denies: fever(s), chills or body aches Eyes: Denies: change in vision, blurry vision or photophobia ENMT: Reports: hoarseness; Denies: throat pain, enlarged tonsils, odynophagia or nasal congestion Card: Denies: chest pain, palpitations, irregular heart rhythm, edema, swelling of feet/ankles, lightheadedness, pre-syncope, dyspnea on exertion or orthopnea Resp: Denies: dyspnea, productive cough, non-productive cough, wheezing, stridor, pain on inspiration, change in phlegm color, hemoptysis or chest simon estion GI: Denies: abdominal pain, nausea, vomiting, hematemesis, coffee ground emesis, dysphagia, heartburn, diarrhea, constipation, GI cramping, change in stool character, hematochezia or melena : Denies: flank pain, difficulty voiding, dysuria, urinary frequency, urinary urgency, urinary hesitancy or hematuria Musc: Denies: neck pain, back pain, extremity pain, joint swelling, joint warmth or deformity Neuro: Denies: headache(s), numbness in extremities, weakness in extremities, sensory changes, difficulty walking, frequent falls, dizziness, vertigo, behavioral changes, Slurred speech present or seizure-like activity Psych: Denies: anxiety, depression, suicidal ideation or homicidal ideation Endo: Denies: polyuria, polydipsia, tired all the time, cold intolerance or hot flashes Rolan/Lymph: Denies: easy bruising or easy bleeding Medications/Allergies Home Medications Medication Instructions Recorded Confirmed Last Taken Type vitamin B complex 1 tab PO DAILY@2199 tab 06/25/19 07/27/20 07/26/20 History omega 1-flq-ezf-fish oil 1,000 mg 1 cap PO DAILY@2199 cap 01/16/20 07/27/20 07/26/20 History (120 mg-180 mg) capsule cholecalciferol (vitamin D3) 25 mcg PO DAILY@219902/13/20 07/27/20 07/26/20 History Protonix 40 mg PO DAILY@219907/27/20 07/27/20 07/26/20 History atorvastatin 80 mg PO DAILY@219907/27/20 07/27/20 07/26/20 History canagliflozin [Invokana] 100 mg PO DAILY@219907/27/20 07/27/20 Unknown History lisinopril-hydrochlorothiazide 1 tab PO DAILY@219907/27/20 07/27/20 07/26/20 History sitagliptin [Januvia] 100 mg PO DAILY@219907/27/20 07/27/20 Unknown History Allergies Allergy/AdvReac Type Severity Reaction Status Date / Time tramadol Allergy Unknown Verified 05/12/20 10:59 PFSH Acute PFSH: Medical History Carotid artery occlusion Chronic low back pain Controlled type 2 diabetes mellitus, without long-term current use of insulin Dyslipidemia Essential (primary) hypertension GERD (gastroesophageal reflux disease) Intervertebral disc disorders with radiculopathy, lumbosacral region Non-alcoholic fatty liver disease Osteoarthritis of multiple joints Surgical History History of hip replacement, total right S/P appendectomy S/P cholecystectomy S/P partial hysterectomy Family History Father CAD (coronary artery disease) Mother Cancer breast Family/Other Diabetes Social History Smoking and tobacco status: never smoked Lives independently: Yes Household members: spouse Marital status: Vitals/I&O/Wt Last Vital Signs Temp 98.5 F 07/27/20 17:00 Pulse 77 07/27/20 17:00 Resp 18 07/27/20 17:00 BP 154/83 07/27/20 17:00 Pulse Ox 96 07/27/20 17:00 07/27/20 07/27/20 07/27/20 06:59 14:59 22:59 Intake Total 1000 / 1000 Balance 1000 / 1000 Weight last 48 hrs Weight 108.862 kg Physical Exam Const: COMMON NORMALS: no acute distress, average body habitus, patient oriented x3, no limitations, healthy appearing, alert and well nourished HENMT: COMMON NORMALS: normocephalic and atraumatic HEAD & SCALP: normocephalic and atraumatic Eye: COMMON NORMALS: Equal, round and reactive pupils present, EOMs intact bilaterally, conjunctivae normal and no scleral icterus CONJUNCTIVA: Yes conjunctivae normal PUPIL: Yes Equal, round and reactive pupils present Neck/C-Spine: COMMON NORMALS: no JVD Resp: COMMON NORMALS: normal respiratory effort, No retractions, No use of accessory muscles, clear to auscultation bilaterally and percussion normal AUSCULTATION: clear to auscultation bilaterally PERCUSSION: percussion normal Cardio: COMMON NORMALS: no JVD, regular rate, regular rhythm, S1 normal heart sound present, S2 normal heart sound present, No gallops present (Cardio), No clicks present (Cardio), No murmurs present (Cardio), No rub (Cardio) and Peripheral pulses 2+ throughout RATE: regular rate RHYTHM: regular rhythm HEART SOUNDS: S1 normal heart sound present and S2 normal heart sound present PERIPHERAL PULSES: Peripheral pulses 2+ throughout GI: COMMON NORMALS: Normal to inspection, nondistended, normoactive bowel sounds present, Soft to palpation, non-tender, No hepatosplenomegaly present, no masses and no bruits PALPATION: Yes Soft to palpation and Yes No hepatosplenomegaly present Extremity: COMMON NORMALS: normal to inspection, full ROM, capillary refill normal, no joint enlargement, no clubbing, cyanosis or edema, no calf tenderness and no pedal edema Neuro: COMMON NORMALS: patient oriented x3, CN's II-XII intact bilaterally, moves all extremities, no focal motor deficits, no sensory deficits noted, deep tendon reflexes 2+ bilaterally and gait normal SENSORIUM/ORIENTATION: Yes alert Psych: COMMON NORMALS: mental status grossly normal, Normal thought process present, cooperative, normal affect, speech normal, activity/motor behavior normal, denies hallucinations, denies homicidal ideation and denies suicidal ideation SPEECH: Yes normal speech THOUGHT PROCESS: Normal thought process present Skin: COMMON NORMALS: no rashes or lesions noted, no wounds, turgor normal, no jaundice, no petechiae and no mottling GENERAL SKIN EXAM: no rashes or lesions noted and turgor normal Data : 07/27/20 12:22 07/27/20 12:22 Other data: 07/27/20 11:47 ABG pH 7.44 ABG pCO2 40.8 ABG pO2 74.5 L ABG HCO3 27.8 H ABG O2 Saturation 96.1 ABG Base Excess 3.3 H Laboratory Results WBC 10.4 10^3/uL (4.0-10.0) H 07/27/20 12: RBC 5.27 10^6/uL (4.1-5.3) 07/27/20 12:22 Hgb 14.5 g/dL (11.5-15.3) 07/27/20 12:22 Hct 45.2 % (37.0-47.0) 07/27/20 12: MCV 85.8 fL (81-99) 07/27/20 12:22 MCH 27.5 pg (28.0-34.0) L 07/27/20 12: MCHC 32.1 g/dL (30.0-36.0) 07/27/20 12: RDW 12.0 % (12.1-15.1) L 07/27/20 12:22 Plt Count 173 10^3/cmm (130-400) 07/27/20 12: MPV 12.4 fL (7.4-10.4) H 07/27/20 12: Neut % (Auto) 76.0 % 07/27/20 12: Lymph % (Auto) 15.2 % 07/27/20 12: [place] % (Auto) 6.9 % 07/27/20 12: Eos % (Auto) 1.2 % 07/27/20 12:22 Baso % (Auto) 0.3 % 07/27/20 12:22 Neut # (Auto) 7.88 10^3/uL (1.8-7.7) H 07/27/20 12:22 Lymph # (Auto) 1.6 10^3/uL (0.8-4.8) 07/27/20 12:22 [place] # (Auto) 0.7 10^3/uL (0.2-0.9) 07/27/20 12:22 Eos # (Auto) 0.1 10^3/uL (0.0-0.8) 07/27/20 12:22 Baso # (Auto) 0.0 10^3/uL (0.0-0.1) 07/27/20 12: Nucleated RBC % (auto) 0 % 07/27/20 12: Nucleated RBCs # 0.0 /100WBC 07/27/20 12:22 Specimen Type Arterial 07/27/20 11:47 Sample Site Radial, left 07/27/20 11:47 ABG pH 7.44 (7.35-7.45) 07/27/20 11:47 ABG pCO2 40.8 mmHg (35-45) 07/27/20 11:47 ABG pO2 74.5 mmHg (80.0-100.0) L 07/27/20 11:47 ABG HCO3 27.8 mmol/L (22-26) H 07/27/20 11:47 ABG O2 Saturation 96.1 07/27/20 11:47 ABG Base Excess 3.3 mmol/L (-2.0-2.0) H 07/27/20 11:47 Best Test Pos 07/27/20 11:47 A-a O2 Gradient 3.2 mmHg (5-10) L 07/27/20 11:47 Hematocrit 47.6 % (37-47) H 07/27/20 11:47 Hgb O2 Saturation 94.6 % (95-100) L 07/27/20 11:47 Carboxyhemoglobin 1.0 %THgb (0.4-20.1) 07/27/20 11:47 Methemoglobin 0.7 % (0.4-1.5) 07/27/20 11:47 Total Hemoglobin 15.5 g/dL (12-16) 07/27/20 11:47 Sodium 134.0 mmol/L (131-143) 07/27/20 11:47 Potassium 3.7 mmol/L (3.5-5.0) 07/27/20 11:47 Glucose 559.0 mg/dL (70-115) H 07/27/20 11:47 Ionized Calcium 1.2 mmol/L (1.1-1.4) 07/27/20 11:47 O2 Delivery Device Room air 07/27/20 11:47 FiO2 21.0 % 07/27/20 11:47 Bottle Blower ID Cak 07/27/20 11:47 Sodium 131 mmol/L (136-145) L 07/27/20 12:22 Potassium 4.0 mmol/L (3.5-5.1) 07/27/20 12:22 Chloride 92 mmol/L (98-107) L 07/27/20 12:22 Carbon Dioxide 25 mmol/L (22-29) 07/27/20 12:22 Anion Gap 18.0 (5-19) 07/27/20 12:22 BUN 16 mg/dL (8-23) 07/27/20 12:22 Creatinine 0.6 mg/dL (0.5-0.9) 07/27/20 12:22 GFR Calculation Not Reportable 07/27/20 12:22 Glucose 508 mg/dL (65-115) H* 07/27/20 12:22 POC Glucose 266 mg/dL (70-110) H 07/27/20 17:15 Estimat Average Glucose 258 07/27/20 12:22 Hemoglobin A1c 10.6 % (4.0-6.0) H 07/27/20 12:22 Calculated Osmolality 296 mOsm/kg (285-295) H 07/27/20 12:22 Lactate 2.8 mmol/L (0.5-2.2) H 07/27/20 12:22 Calcium 9.3 mg/dL (8.5-10.5) 07/27/20 12:22 Total Bilirubin 1.3 mg/dL (0.15-1.2) H 07/27/20 12:22 AST 16 U/L (0-32) 07/27/20 12:22 ALT 21 U/L (0-33) 07/27/20 12:22 Alkaline Phosphatase 177 IU/L (35-105) H 07/27/20 12:22 Troponin T Baseline 8 ng/L (0-10) 07/27/20 12:22 Total Protein 6.9 g/dL (6.6-8.7) 07/27/20 12:22 Albumin 4.2 g/dL (3.5-5.2) 07/27/20 12:22 Globulin 2.7 g/dL (1.3-4.6) 07/27/20 12:22 Urine Color Straw (Yellow) 07/27/20 12:08 Urine Appearance Clear (CLEAR) 07/27/20 12:08 Urine pH 5 (5-7) 07/27/20 12:08 Ur Specific [place] 1.015 (1.005-1.030) 07/27/20 12:08 Urine Protein Neg (Negative) 07/27/20 12:08 Urine Glucose (UA) 4+ (Normal) H 07/27/20 12:08 Urine Ketones Negative (Negative) 07/27/20 12:08 Urine Blood Neg (Negative) 07/27/20 12:08 Urine Nitrate Negative (Negative) 07/27/20 12:08 Urine Bilirubin Neg (Negative) 07/27/20 12:08 Urine Urobilinogen Norm mg/dL (Negative) 07/27/20 12:08 Ur Leukocyte Esterase Negative (Negative) 07/27/20 12:08 Serum Ketones Negative (Negative) 07/27/20 12:22 Impressions Chest X-Ray 07/27/20 11:46 IMPRESSION: Unremarkable chest radiograph. A&P Assessment and plan (1) Acute hyperglycemia: Status: Acute Additional A&P Information Blood sugar >100, not improved with initial insulin in the ER Start mild dose ISS for insulin naive patient Check fingersticks TID, AC estimate 24 hr insulin requirement check Hba1c today, last from apr 2020 is at 7.4 likely reason is running out of diabetes medication, has been unable to follow with PCP due to recent inclement weather Will resume OHAs upon discharge carbohydrate consistent diet Attestations Medical Necessity Statement*: observation admission for glycemic control Coding Level of Care Code Acute Medical Clinic Manager for Chg Fwd Diagnoses Acute hyperglycemia R73.9
--- NOTE | 2020-07-27 19:28 | PC.NURSE ---
Bedside report given to JALEEL Ernst.
[2020-07-27 20:59] LABS: Glucose Point of Care 262 mg/dL (70-110)
[2020-07-27] MEDS: atorvastatin 40 mg Tablet 80 MG PO (20:59)
[2020-07-27] MEDS: pantoprazole DR 40 mg Tablet PO (21:00)
[2020-07-27] MEDS: lisinopril 10 mg Tablet PO (21:00)
[2020-07-27] MEDS: hydroCHLOROthiazide 25 mg Tablet 12.5 MG PO (21:00)
[2020-07-28] VITALS: BP 131/67; PULSE 85; RESP 17; TEMP 36.9; O2SAT 95
[2020-07-28 01:10] LABS: Glucose Point of Care 226 mg/dL (70-110)
[2020-07-28 04:00] VITALS: BP 127/78; PULSE 77; RESP 17; TEMP 37.1; O2SAT 93
[2020-07-28 06:52] LABS: Glucose Point of Care 274 mg/dL (70-110)
--- NOTE | 2020-07-28 06:53 | PC.NURSE ---
Report to Wilma MARMOLEJO
[2020-07-28 07:32] VITALS: BP 124/65; PULSE 78; RESP 18; TEMP 36.8; O2SAT 95
[2020-07-28 07:47] LABS: Alanine Aminotransferase 17 U/L (0-33); Albumin Level 3.8 g/dL (3.5-5.2); Alkaline Phosphatase 140 IU/L (35-105); Anion Gap 12.7 (5-19); Aspartate Amino Transferase 15 U/L (0-32); Blood Urea Nitrogen 16 mg/dL (8-23); Calcium 9.3 mg/dL (8.5-10.5); Carbon Dioxide 28 mmol/L (22-29); Chloride 99 mmol/L (98-107); Globulin 2.8 g/dL (1.3-4.6); Glucose 292 mg/dL (65-115); Osmolality Calculated 294 mOsm/kg (285-295); Potassium 3.7 mmol/L (3.5-5.1); Sodium 136 mmol/L (136-145); Total Bilirubin 1.5 mg/dL (0.15-1.2); Total Protein 6.6 g/dL (6.6-8.7)
--- NOTE | 2020-07-28 10:07 | PC.CHAP ---
Pastoral Care Encounter/Spiritual Assessment Type of Contact [] Declined professor of astronomy visit [] Patient/Family/Request visit [] Outpatient visit [] Follow-up visit [] Physician referral [] Code/Alert [X] Routine visit [] Staff referral [] Actively dying [] Patient sleeping [] Family support [] [] Out of room [] Palliative care [] [] Receiving care in room [] Pre-surgical visit [] Trauma [] Long length of stay [] ICU visit [] Other: Relational/Emotional Strength [X] Patient feels connected with others/family/visitors/staff [] Distress [] Loneliness/isolation [] Abandonment Spirituality of Patient [X] Person of Ifrah [] Attends Pentecostal of their Ifrah [] Believes in Prayer [] Reads Bible or Presybeterian materials [] There are Spiritual issues to be addressed Banquet Kitchen Supervisor Interventions [X] Prayer [] Active listening [] Non-anxious presence [] Spiritual/emotional support [] Crisis/trauma care [] Spiritual counseling [] Bereavement support [] Provided bereavement packet [] Provided Bible/devotional materials [] Provided toy/stuffed animal, coloring book to patient or family member [] Provided Communion [] Anointing/[place] [] Salvation [] Completed spiritual assessment [] Other: Impact on Illness or Injury [] Angry [] Fearful [] Anxious [] Often cries [] Exhaustion [] Unable to work [] Unable to attend jew [] Unable to walk/stand [] Unable to read [] Unable to drive [] Unable to eat/drink [] Unable to sleep [] Unable to be with family [] Patient intubated [] Other: Summary PATIENT VERY TIRED Time spent with patient 5 MIN
--- NOTE | 2020-07-28 10:41 | PM.DCS ---
Discharge Providers Date of Admission: 07/27/20 13:33 Date of Discharge: July 28, 2020 Attending Provider at Admission: Pricilla Franklin MD Attending Provider at Discharge: Pricilla Franklin MD Primary Care Provider: Veronika Batres DO Diagnoses at Discharge Discharge Diagnosis (1) Acute hyperglycemia: Status: Acute Reason for Visit Reason for Visit: HIGH BLOOD SUGAR (500) Hospital Course Hospital Course Millie Finley is a 70 year old female with PMH DM who has been out of her DM medications after running out of refills on Jul, and therefore has not been taking her prescribed invokana or sitagliptin. Also reports inability to strictly adhere to a carb consistent diet since May 2020. presented today with feeling dehydarted, mouth dryness, generalized malaise and discomofrt. Blood sugar found to be >500, received 10 units insulin in the ER, 1 hr later Blood sugar continued to be >500, ERP requested admission for blood sugar management. Normal anion gap. No kentonuria. She was admitted in observation for glycemic control. With mild inusulin sliding scale, this improved to fingerstick of ~260. Hba1c returned at 10.4, up from 7.4 in 2019. She was discharged in stable condition with prescriptions for her usual home regimen of invokana and sitagliptin. She has f/up appt with PCP on 07/30/20. Physical Exam Narrative: EXAM NARRATIVE: GEN: Awake, alert and oriented, no acute distress CVS: S1S2 N RS: CTA B/L Abd: Soft, nt/nd , bs+ CLINICAL INFORMATICS PHYSICIAN: no focal neuro deficits Discharge Data Data Completed and Pending: Completed Studies During Hospitalization Category Date Time Status XR chest 1V lily ble [id number] Urgent Exams 07/27/20 11:46 Completed Labs from last 24 hours 07/28/20 07/28/20 07/28/20 07:26 06:47 05:25 WBC RBC Hgb Hct MCV MCH MCHC RDW Plt Count MPV Neut % (Auto) Lymph % (Auto) [place] % (Auto) Eos % (Auto) Baso % (Auto) Neut # (Auto) Lymph # (Auto) [place] # (Auto) Eos # (Auto) Baso # (Auto) Nucleated RBC % (a uto) Nucleated RBCs # Specimen Type Sample Site ABG pH ABG pCO2 ABG pO2 ABG HCO3 ABG O2 Saturation ABG Base Excess Best Test A-a O2 Gradient Hematocrit Hgb O2 Saturation Carboxyhemoglobin Methemoglobin Total Hemoglobin Sodium 136 Cancelled Potassium 3.7 Cancelled Glucose 292 H Cancelled Ionized Calcium O2 Delivery Device FiO2 Wealth Management Manager ID Chloride 99 Cancelled Carbon Dioxide 28 Cancelled Anion Gap 12.7 Cancelled BUN 16 Cancelled Creatinine 0.6 Cancelled GFR Calculation Not Reportable Cancelled POC Glucose 274 H Estimat Average Gl ucose Hemoglobin A1c Calculated Osmolal ity 294 Cancelled Lactate Calcium 9.3 Cancelled Total Bilirubin 1.5 H Cancelled AST 15 Cancelled ALT 17 Cancelled Alkaline Phosphata se 140 H Cancelled Troponin T Baselin e Total Protein 6.6 Cancelled Albumin 3.8 Cancelled Globulin 2.8 Cancelled Urine Color Urine Appearance Urine pH Ur Specific Gravit y Urine Protein Urine Glucose (UA) Urine Ketones Urine Blood Urine Nitrate Urine Bilirubin Urine Urobilinogen Ur Leukocyte Gayle ase Serum Ketones 07/28/20 07/27/20 07/27/20 01:06 20:55 17:15 WBC RBC Hgb Hct MCV MCH MCHC RDW Plt Count MPV Neut % (Auto) Lymph % (Auto) [place] % (Auto) Eos % (Auto) Baso % (Auto) Neut # (Auto) Lymph # (Auto) [place] # (Auto) Eos # (Auto) Baso # (Auto) Nucleated RBC % (a uto) Nucleated RBCs # Specimen Type Sample Site ABG pH ABG pCO2 ABG pO2 ABG HCO3 ABG O2 Saturation ABG Base Excess Best Test A-a O2 Gradient Hematocrit Hgb O2 Saturation Carboxyhemoglobin Methemoglobin Total Hemoglobin Sodium Potassium Glucose Ionized Calcium O2 Delivery Device FiO2 Wealth Management Manager ID Chloride Carbon Dioxide Anion Gap BUN Creatinine GFR Calculation POC Glucose 226 H 262 H 266 H Estimat Average Gl ucose Hemoglobin A1c Calculated Osmolal ity Lactate Calcium Total Bilirubin AST ALT Alkaline Phosphata se Troponin T Baselin e Total Protein Albumin Globulin Urine Color Urine Appearance Urine pH Ur Specific Gravit y Urine Protein Urine Glucose (UA) Urine Ketones Urine Blood Urine Nitrate Urine Bilirubin Urine Urobilinogen Ur Leukocyte Gayle ase Serum Ketones 07/27/20 07/27/20 07/27/20 14:28 13:08 12:22 WBC RBC Hgb Hct MCV MCH MCHC RDW Plt Count MPV Neut % (Auto) Lymph % (Auto) [place] % (Auto) Eos % (Auto) Baso % (Auto) Neut # (Auto) Lymph # (Auto) [place] # (Auto) Eos # (Auto) Baso # (Auto) Nucleated RBC % (a uto) Nucleated RBCs # Specimen Type Sample Site ABG pH ABG pCO2 ABG pO2 ABG HCO3 ABG O2 Saturation ABG Base Excess Best Test A-a O2 Gradient Hematocrit Hgb O2 Saturation Carboxyhemoglobin Methemoglobin Total Hemoglobin Sodium Potassium Glucose Ionized Calcium O2 Delivery Device FiO2 Wealth Management Manager ID Chloride Carbon Dioxide Anion Gap BUN Creatinine GFR Calculation POC Glucose 350 H 394 H Estimat Average Gl ucose 258 Hemoglobin A1c 10.6 H Calculated Osmolal ity Lactate Calcium Total Bilirubin AST ALT Alkaline Phosphata se Troponin T Baselin e Total Protein Albumin Globulin Urine Color Urine Appearance Urine pH Ur Specific Gravit y Urine Protein Urine Glucose (UA) Urine Ketones Urine Blood Urine Nitrate Urine Bilirubin Urine Urobilinogen Ur Leukocyte Gayle ase Serum Ketones 07/27/20 07/27/20 07/27/20 12:22 12:22 12:22 WBC RBC Hgb Hct MCV MCH MCHC RDW Plt Count MPV Neut % (Auto) Lymph % (Auto) [place] % (Auto) Eos % (Auto) Baso % (Auto) Neut # (Auto) Lymph # (Auto) [place] # (Auto) Eos # (Auto) Baso # (Auto) Nucleated RBC % (a uto) Nucleated RBCs # Specimen Type Sample Site ABG pH ABG pCO2 ABG pO2 ABG HCO3 ABG O2 Saturation ABG Base Excess Best Test A-a O2 Gradient Hematocrit Hgb O2 Saturation Carboxyhemoglobin Methemoglobin Total Hemoglobin Sodium Potassium Glucose Ionized Calcium O2 Delivery Device FiO2 Wealth Management Manager ID Chloride Carbon Dioxide Anion Gap BUN Creatinine GFR Calculation POC Glucose Estimat Average Gl ucose Hemoglobin A1c Calculated Osmolal ity Lactate 2.8 H Calcium Total Bilirubin AST ALT Alkaline Phosphata se Troponin T Baselin e 8 Total Protein Albumin Globulin Urine Color Urine Appearance Urine pH Ur Specific Gravit y Urine Protein Urine Glucose (UA) Urine Ketones Urine Blood Urine Nitrate Urine Bilirubin Urine Urobilinogen Ur Leukocyte Gayle ase Serum Ketones Negative 07/27/20 07/27/20 07/27/20 12:22 12:22 12:19 WBC 10.4 H RBC 5.27 Hgb 14.5 Hct 45.2 MCV 85.8 MCH 27.5 L MCHC 32.1 RDW 12.0 L Plt Count 173 MPV 12.4 H Neut % (Auto) 76.0 Lymph % (Auto) 15.2 [place] % (Auto) 6.9 Eos % (Auto) 1.2 Baso % (Auto) 0.3 Neut # (Auto) 7.88 H Lymph # (Auto) 1.6 [place] # (Auto) 0.7 Eos # (Auto) 0.1 Baso # (Auto) 0.0 Nucleated RBC % (a uto) 0 Nucleated RBCs # 0.0 Specimen Type Sample Site ABG pH ABG pCO2 ABG pO2 ABG HCO3 ABG O2 Saturation ABG Base Excess Best Test A-a O2 Gradient Hematocrit Hgb O2 Saturation Carboxyhemoglobin Methemoglobin Total Hemoglobin Sodium 131 L Potassium 4.0 Glucose 508 H* Ionized Calcium O2 Delivery Device FiO2 Wealth Management Manager ID Chloride 92 L Carbon Dioxide 25 Anion Gap 18.0 BUN 16 Creatinine 0.6 GFR Calculation Not Reportable POC Glucose 476 H Estimat Average Gl ucose Hemoglobin A1c Calculated Osmolal ity 296 H Lactate Calcium 9.3 Total Bilirubin 1.3 H AST 16 ALT 21 Alkaline Phosphata se 177 H Troponin T Baselin e Total Protein 6.9 Albumin 4.2 Globulin 2.7 Urine Color Urine Appearance Urine pH Ur Specific Gravit y Urine Protein Urine Glucose (UA) Urine Ketones Urine Blood Urine Nitrate Urine Bilirubin Urine Urobilinogen Ur Leukocyte Gayle ase Serum Ketones 07/27/20 07/27/20 07/27/20 12:08 11:49 11:47 WBC RBC Hgb Hct MCV MCH MCHC RDW Plt Count MPV Neut % (Auto) Lymph % (Auto) [place] % (Auto) Eos % (Auto) Baso % (Auto) Neut # (Auto) Lymph # (Auto) [place] # (Auto) Eos # (Auto) Baso # (Auto) Nucleated RBC % (a uto) Nucleated RBCs # Specimen Type Arterial Sample Site Radial, left ABG pH 7.44 ABG pCO2 40.8 ABG pO2 74.5 L ABG HCO3 27.8 H ABG O2 Saturation 96.1 ABG Base Excess 3.3 H Best Test Pos A-a O2 Gradient 3.2 L Hematocrit 47.6 H Hgb O2 Saturation 94.6 L Carboxyhemoglobin 1.0 Methemoglobin 0.7 Total Hemoglobin 15.5 Sodium 134.0 Potassium 3.7 Glucose 559.0 H Ionized Calcium 1.2 O2 Delivery Device Room air FiO2 21.0 Wealth Management Manager ID Cak Chloride Carbon Dioxide Anion Gap BUN Creatinine GFR Calculation POC Glucose 500 H Estimat Average Gl ucose Hemoglobin A1c Calculated Osmolal ity Lactate Calcium Total Bilirubin AST ALT Alkaline Phosphata se Troponin T Baselin e Total Protein Albumin Globulin Urine Color Straw Urine Appearance Clear Urine pH 5 Ur Specific Gravit y 1.015 Urine Protein Neg Urine Glucose (UA) 4+ H Urine Ketones Negative Urine Blood Neg Urine Nitrate Negative Urine Bilirubin Neg Urine Urobilinogen Norm Ur Leukocyte Gayle ase Negative Serum Ketones Vitals: Last Vital Signs Temp 98.2 F 07/28/20 07:32 Pulse 78 07/28/20 07:32 Resp 18 07/28/20 07:32 BP 124/65 07/28/20 07:32 Pulse Ox 95 07/28/20 07:32 Discharge Plan Discharge Patient Disposition: Home Condition: Stable Prescriptions: Continued cholecalciferol (vitamin D3) 25 mcg PO DAILY@220 RF: 0 vitamin B complex [B Complex-Vitamin B12] Tablet 1 tab PO DAILY@2199 RF: 0 omega 2-tnp-kcf-fish oil [Fish Oil] 1,000 mg (120 mg-180 mg) capsule 1 cap PO DAILY@2199 RF: 0 atorvastatin 80 mg tablet 80 mg PO DAILY@2199 RF: 0 Protonix 40 mg tablet,delayed release (DR/EC) 40 mg PO DAILY@220 RF: 0 lisinopril-hydrochlorothiazide 10-12.5 mg tablet 1 tab PO DAILY@2199 RF: 0 Changed Januvia 100 mg tablet 100 mg PO DAILY@220 30 Days Qty: 30 RF: 0 Invokana 100 mg tablet 100 mg PO DAILY@220 30 Days Qty: 30 RF: 0 Discharge Orders: Discharge Order (Routine); Ordered 07/28/20 Ordered By: Pricilla Franklin Referrals: Veronika Batres DO [Primary Care Provider] - 07/30/20 2:30 pm Carlitos Reagan MD [Physician] - 1 week (diabetes management, a1c 10.4 OFFICE WILL CALL WITH APPOINTMENT ) Discharge Diet: Diabetic Discharge Activity: Resume usual activity Patient Instructions: Sitagliptin (By mouth), Canagliflozin (By mouth), Meal Planning with Diabetes Exchanges (DC), Diabetic Hyperglycemia (DC) Discharge Attestations Time Spent in Discharge Care*: less than 30 min Quality Metrics Clinical Quality Measures During this hospital stay, did patient experience: None Coding Level of Care Code Acute Aircraft Magneto Mechanic for Chg Fwd Diagnoses Acute hyperglycemia R73.9
[2020-07-28 11:16] VITALS: BP 128/79; PULSE 78; RESP 17; TEMP 36.4; O2SAT 95
[2020-07-28 11:51] LABS: Glucose Point of Care 286 mg/dL (70-110)
[2020-07-28 12:09] VITALS: BP 128/79; PULSE 78; RESP 17; TEMP 36.4; O2SAT 95
--- NOTE | 2020-07-28 12:16 | PC.NURSE ---
DISCHARGE INSTRUCTIONS DISCHARGE INSTRUCTIONS REVIEWED PER THIS NURSE - PT VERBALIZES UNDERSTANDING
== END 2020-07-28 13:17 | disposition home or self-care (01) ==
LOC: ER 13:53 → MEDSURG 14:26
PROVIDERS: Physician Assistant; Admitting Provider Student in an Organized Health Care Education/Training Program; Emergency Provider Family Medicine; PCP Family Medicine; Visit Provider Student in an Organized Health Care Education/Training Program
DX: E11.65 Type 2 diabetes mellitus with hyperglycemia (principal); E78.5 Hyperlipidemia, unspecified; I10 Essential (primary) hypertension; K21.9 Gastro-esophageal reflux disease without esophagitis; M19.90 Unspecified osteoarthritis, unspecified site
CPT/HCPCS: 36415; 36416; 36600; 71045; 80051; 80053; 81003; 82009; 82330; 82805; 82962; 83036; 83605; 84484; 85025; 93005; 96361; 96365; 96366; 96372; 96375; 99285; G0378; J1815; J7030

== ENCOUNTER → 2020-07-30 15:05 | Outpatient (BNVA) | payer MEDICARE, OTHER, SELFPAY | PROVIDERS: PCP Family Medicine; Visit Provider Family Medicine | DX: E11.9 Type 2 diabetes mellitus without complications (principal) | CPT/HCPCS: 80053 ==

== ENCOUNTER 2020-08-20 09:17 | Outpatient (CLI) | payer MEDICARE, OTHER, SELFPAY ==
[2020-08-20 11:04] LABS: Free T4 Free Thyroxine 1.38 ng/dL (0.82-1.77); Thyroid Stimulating Hormone 1.37 uIU/mL (0.27-4.20)
[2020-08-21 07:33] LABS: T3 Total 154 ng/dL (76-181)
== END 2020-08-20 09:18 | disposition home or self-care (01) ==
LOC: LAB 09:21
PROVIDERS: PCP Family Medicine; Visit Provider Internal Medicine
DX: B37.9 Candidiasis, unspecified (principal); E04.1 Nontoxic single thyroid nodule; E07.9 Disorder of thyroid, unspecified; E11.42 Type 2 diabetes mellitus with diabetic polyneuropathy; E11.65 Type 2 diabetes mellitus with hyperglycemia; R10.9 Unspecified abdominal pain
CPT/HCPCS: 36415; 84439; 84443; 84480; 99205

== ENCOUNTER 2020-09-14 15:00 | Outpatient (CLI) | payer MEDICARE, OTHER, SELFPAY ==
--- NOTE | 2020-09-14 15:00 | US_ITS ---
WS: [id number] THYROID ULTRASOUND (TI-RADS CRITERIA) History: History of thyroid nodule. Technique: Ultrasound examination of the thyroid and adjacent soft tissues is performed. Comparison: 11/22/2017 and 04/13/2017 FINDINGS: Right lobe: 5.0 cm x 2.0 cm x 1.6 cm. Volume: 8.1 cm3. Mildly prominent thyroid. There are several hypoechoic nodules within the gland. All of these nodules are less than a centimeter and benign in appearance. The largest in the superior gland measures 4 x 8 x 8 mm. Left lobe: 4.9 cm x 1.9 cm x 1.9 cm. Volume: 9.1 cm3. Mildly prominent thyroid. Several nodules are identified. LEFT isthmus nodule measures 5 x 8 x 9 mm w ithout significant increase in size (nodule labeled #1). NODULE: 2 Size: 8 x 9 x 9 mm Location: Mid LEFT Composition: Solid/almost completely solid (2) Echogenicity: Hypoechoic (2) Shape: Not taller than wide (0) Margins: Lobulated/irregular (2) Echogenic foci: Punctate echogenic foci (3) ACR TI-RADS total points: 9 ACR TI-RADS risk category: TR 5 Isthmus: 0.3 cm. US/US thyroid [id number] Impression: TR5 Recommendation:Fine needle aspiration is recommended for nodules greater than 1 cm as per ACR TI-RADS criteria. Due to the concerning features consider fine-n eedle aspiration at this time. Ultrasound-guided FNA of the mid LEFT thyroid no dule recommended.
== END 2020-09-14 15:01 | disposition home or self-care (01) ==
LOC: RAD 15:05
PROVIDERS: PCP Family Medicine; Visit Provider Internal Medicine
DX: E04.1 Nontoxic single thyroid nodule (principal)
CPT/HCPCS: 76536

== ENCOUNTER → 2020-10-02 11:25 | Outpatient (BNVA) | payer MEDICARE, OTHER, SELFPAY | PROVIDERS: PCP Family Medicine; Visit Provider Surgery | DX: Z01.812 Encounter for preprocedural laboratory examination (principal); Z20.822 Contact with and (suspected) exposure to COVID-19 | CPT/HCPCS: 87635 ==

== ENCOUNTER 2020-10-07 09:47 | Day surgery (SDC) | payer MEDICARE, OTHER, SELFPAY ==
[2020-10-06 12:11] VITALS: BMI 30.9
--- NOTE | 2020-10-07 10:18 | ANES.PREANE2 ---
Pre-Anesthetic Assessment Pre-Anesthetic Assessment: Height/Weight: Height 1.8 m Weight 100.698 kg Proposed Procedure: Operation Date: 10/07/20 11:30 Proposed Procedures p EGD 44427 k21.9(Not Applicable) - Esequiel Pabon MD Was Beta Jomar taken within 24 hours: N/A Was Clonidine taken within 24 hours: N/A Social: Social History: No alcohol and No tobacco Exam: Pre-Anes Outpt Exam: alert, oriented x 3, clear to auscultation bilaterally and regular rate & rhythm Airway: Submandibular: WNL Cervical ROM: WNL MP: 2 Dentition: Full CV/HEM: CV/HEM: HTN and PVD GI: GI: GERD and Hiatus hernia Metabolic: Metabolic: DM, Morbid obesity and Thyroid Neuropsych: Comments: brain bleed Anesthetic Plan: ASA status: 3 Anesthesia: MAC Risk of > 500 ml blood loss (7ml/kg in children): No PFSH Anesthesia PFSH: Medical History Carotid artery occlusion Chronic low back pain Controlled type 2 diabetes mellitus, without long-term current use of insulin Dyslipidemia Essential (primary) hypertension GERD (gastroesophageal reflux disease) Intervertebral disc disorders with radiculopathy, lumbosacral region Non-alcoholic fatty liver disease Osteoarthritis of multiple joints Surgical History History of hip replacement, total right S/P appendectomy S/P cholecystectomy S/P partial hysterectomy Family History Father CAD (coronary artery disease) Mother Cancer breast Family/Other Diabetes Social History Smoking and tobacco status: never smoked Second hand smoke exposure: No Alcohol intake: never Lives independently: Yes Household members: spouse Marital status: Data Anesthesia Cardiac Studies: No Data to Display
--- NOTE | 2020-10-07 11:10 | W.PM.OPSUD ---
Surgery/Procedure H&P Update DATE OF PROCEDURE: October 07, 2020 DATE H&P PERFORMED: 09/10/20 H&P UPDATE INFORMATION: I have reviewed H&P completed within last 30 days, I have examined patient prior to procedure and No changes to prior documentation PREOP DIAGNOSIS: Epigastric pain PRIMARY INDICATION FOR PROCEDURE: The same PLANNED PROCEDURE: Operation Date: 10/07/20 11:30 Proposed Procedures p EGD 65455 k21.9(Not Applicable) - Esequiel Pabon MD
[2020-10-07 11:18] VITALS: BP 128/74; PULSE 67; RESP 18; TEMP 37.2; O2SAT 95
[2020-10-07] MEDS: sodium chloride 0.9% 1,000 ML 30 ML IV (11:22)
[2020-10-07 11:37] LABS: Glucose Point of Care 126 mg/dL (70-110)
[2020-10-07 12:07] VITALS: BP 113/69; PULSE 62; RESP 16; TEMP 36.3; O2SAT 95
--- NOTE | 2020-10-07 12:11 | ANE.PACU2 ---
Inpatient post-anesthesia follow up: Airway intact: Yes Vital signs: Temperature 97.3 F Pulse Rate 62 Respiratory Rate 16 Blood Pressure 113/69 Pulse Oximetry 95 Oxygen Delivery Me thod Room Air Oxygen Flow Rate Fraction of Inspir ed Oxygen Hydration adequate: Yes Nausea and vomiting: No Pain level: 1 Mental status: Baseline
== END 2020-10-07 12:33 | disposition home or self-care (01) ==
PROVIDERS: PCP Family Medicine; Visit Provider Surgery
PROC: 0DJ08ZZ Inspection of Upper Intestinal Tract, Via Natural or Artificial Opening Endoscopic (ICD-10-PCS; CPT 43235; principal; 2020-10-07 11:30)
DX: R10.13 Epigastric pain (principal); E11.9 Type 2 diabetes mellitus without complications; Z79.84 Long term (current) use of oral hypoglycemic drugs; E78.5 Hyperlipidemia, unspecified; I10 Essential (primary) hypertension; K21.9 Gastro-esophageal reflux disease without esophagitis; M19.90 Unspecified osteoarthritis, unspecified site; E66.01 Morbid (severe) obesity due to excess calories; Z68.31 Body mass index [BMI] 31.0-31.9, adult
CPT/HCPCS: 36416; 43239; 82962; 88305; 96360; J2704; J7030

== ENCOUNTER 2020-10-22 07:31 | Outpatient (CLI) | payer MEDICARE, OTHER, SELFPAY ==
--- NOTE | 2020-10-22 08:00 | NM_ITS ---
WS: [id number] NUCLEAR MEDICINE GASTRIC STUDY CLINICAL INFORMATION: K29.70 - Gastritis, unspecified, without bleeding TECHNIQUE: Following oral ingestion of cooked egg mixed with 1.00 mCi technetium 99m sulfur colloid, anterior images of the stomach were obtained over the course of 90 minutes. Activity curve was perfor med over the course of 90 minutes with linear regression analysis. COMPARISON: None. FINDINGS: Prior cholecystectomy. Oral ingestion of cooked egg mixture. 51% emptying at 67 minutes. Linear T1 half 61.1 minutes NM/[place] gastric [place]ying [place] [id number] IMPRESSION: Normal gastric emptying *Normal median T1 half 90 minutes for solid egg meal (45-110 minutes). Delayed gastric retention is defined as 90% retained at 1 hour, 60% at 2 hour s, 30% at 3 hours, and 10% at 4 hours (normal percent gastric retention is 37-9 0% at 1 hour, 30-60% at 2 hours, and 0-10% at 4 hours).
== END 2020-10-22 07:32 | disposition home or self-care (01) ==
LOC: NM 07:34
PROVIDERS: PCP Family Medicine; Visit Provider Surgery
DX: K29.70 Gastritis, unspecified, without bleeding (principal)
CPT/HCPCS: 78264; A9541

== ENCOUNTER → 2020-11-27 09:34 | Outpatient (BNVA) | payer MEDICARE, OTHER, SELFPAY | PROVIDERS: PCP Family Medicine; Visit Provider Family Medicine | DX: E11.9 Type 2 diabetes mellitus without complications (principal); I10 Essential (primary) hypertension; E78.5 Hyperlipidemia, unspecified | CPT/HCPCS: 80053; 80061; 82043; 83036; 85025 ==

== ENCOUNTER 2020-12-27 11:36 | Outpatient (CLI) | payer MEDICARE, OTHER, SELFPAY ==
[2020-12-28 14:01] LABS: Coronavirus Test Green County Detected
== END 2020-12-27 11:37 | disposition home or self-care (01) ==
PROVIDERS: PCP Family Medicine; Visit Provider Family Medicine
DX: Z20.822 Contact with and (suspected) exposure to COVID-19 (principal)
CPT/HCPCS: 87635

== ENCOUNTER 2021-01-01 07:53 | Outpatient (CLI) | payer MEDICARE, SELFPAY ==
[2021-01-01 09:00] VITALS: BP 144/73; PULSE 86; TEMP 36.6; O2SAT 94
[2021-01-01 10:17] VITALS: BP 120/76; PULSE 76; TEMP 36.8; O2SAT 95
[2021-01-01 11:08] VITALS: BP 127/79; PULSE 79; TEMP 36.8; O2SAT 93
--- NOTE | 2021-01-08 12:53 | DCPLANNER ---
[employer] dynamics manager architect had message that patient received the monoclonal antibody infusion. [employer] dynamics manager architect called to check on patient to see how patient was feeling after receiving the infusion. Patient stated that she was feeling better now, but right after getting the infusion, she did not feel good. Patient stated that before the infusion, she had a fever, she did have a headache. Patient stated that after the infusion, she really does not have an appetite, but she is slowly getting her strength back, and she if starting to feel a little better.
== END 2021-01-01 11:11 | disposition home or self-care (01) ==
LOC: ER 07:54
PROVIDERS: PCP Family Medicine; Visit Provider Registered Nurse Neonatal Intensive Care
DX: U07.1 COVID-19 (principal)
CPT/HCPCS: 96365

== ENCOUNTER 2021-03-09 07:13 | Outpatient (CLI) | payer MEDICARE, OTHER, SELFPAY ==
--- NOTE | 2021-03-09 08:00 | US_ITS ---
WS: [email or web address] ULTRASOUND-GUIDED LEFT THYROID NODULE FNA HISTORY: E04.1 - Nontoxic single thyroid nodule Procedure, risks, and complications were explained to the patient. Consent has been obtained. Prior imaging study from 09/14/2020 is reviewed. Most concerning nodule within the LEFT thyroid is loc alized and targeted. The skin is cleansed with ChloraPrep and anesthetized with 1% buffered lidocaine. FNA performed with 25 gauge needles. medical technologist clinical is present to fix slides. US/US biopsy thyroid [id number] IMPRESSION: Uncomplicated FNA of a LEFT thyroid nodule. Final pathology results pending.
== END 2021-03-09 07:14 | disposition home or self-care (01) ==
LOC: RAD 07:19
PROVIDERS: PCP Family Medicine; Visit Provider Internal Medicine
DX: E04.1 Nontoxic single thyroid nodule (principal)
CPT/HCPCS: 10005; 88173; 88305

== ENCOUNTER → 2021-05-25 12:02 | Outpatient (BNVA) | payer MEDICARE, OTHER, SELFPAY | PROVIDERS: PCP Family Medicine; Visit Provider Family Medicine | DX: E11.9 Type 2 diabetes mellitus without complications (principal) | CPT/HCPCS: 80053; 83036 ==

== ENCOUNTER → 2021-09-29 15:10 | Outpatient (BNVA) | payer MEDICARE, OTHER, SELFPAY | PROVIDERS: PCP Family Medicine; Visit Provider Otolaryngology | DX: E04.1 Nontoxic single thyroid nodule (principal); E04.2 Nontoxic multinodular goiter | CPT/HCPCS: 99212 ==

== ENCOUNTER 2021-11-19 13:06 | Outpatient (CLI) | payer MEDICARE, OTHER, SELFPAY ==
--- NOTE | 2021-11-19 13:30 | US_ITS ---
WS: [email or web address] Thyroid ultrasound, 11/19/2021 Clinical Data: check thyroid nodule Comparison: Thyroid ultrasound, 03/09/2021. Findings: The right lobe of thyroid measures 4.7 cm x 1.6 cm x 1.8 cm. The left lobe measures 4.0 cm x 1.7 cm x 1.9 cm. The left lobe nodule is 0.80 x 0.95 x 0.96 cm which corresponds in size to the prior study. The isthmus measured 0.3 mm. The echotexture of the thyroid is uniform. No other nodules, cysts or masses are seen. There is a lef t cervical lymph node measuring 0.61 x 0.63 x 1.28 cm. US/US thyroid [id number] Impression: 1. No change in left thyroid lobe nodule. 2. Left cervical lymph node.
== END 2021-11-19 13:07 | disposition home or self-care (01) ==
LOC: RAD 13:10
PROVIDERS: PCP Family Medicine; Visit Provider Otolaryngology
DX: E04.1 Nontoxic single thyroid nodule (principal)
CPT/HCPCS: 76536

== ENCOUNTER → 2021-12-20 10:28 | Outpatient (BNVA) | payer MEDICARE, OTHER, SELFPAY | PROVIDERS: PCP Family Medicine; Visit Provider Otolaryngology | DX: E04.1 Nontoxic single thyroid nodule (principal) | CPT/HCPCS: 99212; 99213 ==

== ENCOUNTER → 2022-01-27 09:42 | Outpatient (BNVA) | payer MEDICARE, OTHER, SELFPAY | PROVIDERS: PCP Family Medicine; Visit Provider Family Medicine | DX: E11.9 Type 2 diabetes mellitus without complications (principal); E78.5 Hyperlipidemia, unspecified; R19.4 Change in bowel habit; I10 Essential (primary) hypertension | CPT/HCPCS: 80053; 80061; 83036 ==

== ENCOUNTER → 2022-02-09 14:32 | Outpatient (BNVA) | payer MEDICARE, OTHER, SELFPAY | PROVIDERS: PCP Family Medicine; Visit Provider Surgery | DX: R19.4 Change in bowel habit (principal) | CPT/HCPCS: 99213 ==

== ENCOUNTER → 2022-05-23 09:53 | Outpatient (BNVA) | payer MEDICARE, OTHER, SELFPAY | PROVIDERS: PCP Family Medicine; Visit Provider Podiatrist Foot & Ankle Surgery | DX: E11.42 Type 2 diabetes mellitus with diabetic polyneuropathy (principal); Z79.84 Long term (current) use of oral hypoglycemic drugs | CPT/HCPCS: 99213 ==

== ENCOUNTER → 2022-07-28 08:58 | Outpatient (BNVA) | payer MEDICARE, OTHER, SELFPAY | PROVIDERS: PCP Family Medicine; Visit Provider Family Medicine | DX: E11.9 Type 2 diabetes mellitus without complications (principal); R10.9 Unspecified abdominal pain | CPT/HCPCS: 80053; 81000; 82043; 83036; 87086 ==

== ENCOUNTER → 2022-10-20 13:52 | Outpatient (BNVA) | payer MEDICARE, OTHER, SELFPAY | PROVIDERS: PCP Family Medicine; Visit Provider Internal Medicine | DX: E11.42 Type 2 diabetes mellitus with diabetic polyneuropathy (principal); E04.1 Nontoxic single thyroid nodule; I10 Essential (primary) hypertension; Z79.84 Long term (current) use of oral hypoglycemic drugs | CPT/HCPCS: 36415; 84439; 84443; 99214 ==

== ENCOUNTER 2022-11-02 10:06 | Outpatient (CLI) | payer MEDICARE, OTHER, SELFPAY ==
[2022-11-02 11:51] LABS: 25 Hydroxy Vitamin D 48 ng/mL (30-100); Vitamin B12 1359 pg/mL (232-1245)
== END 2022-11-02 10:07 | disposition home or self-care (01) ==
PROVIDERS: PCP Family Medicine; Visit Provider Internal Medicine
DX: E11.42 Type 2 diabetes mellitus with diabetic polyneuropathy (principal); E04.1 Nontoxic single thyroid nodule
CPT/HCPCS: 36415; 82306; 82607

== ENCOUNTER → 2022-12-19 10:12 | Outpatient (BNVA) | payer MEDICARE, OTHER, SELFPAY | PROVIDERS: PCP Family Medicine; Visit Provider Otolaryngology | DX: E04.1 Nontoxic single thyroid nodule (principal); E04.2 Nontoxic multinodular goiter | CPT/HCPCS: 99213 ==

== ENCOUNTER 2022-12-27 10:56 | Outpatient (CLI) | payer MEDICARE, OTHER, SELFPAY ==
--- NOTE | 2022-12-27 11:15 | US_ITS ---
WS: [id number] THYROID ULTRASOUND HISTORY: thyroid nodule COMPARISON: 11/19/2021, 07/28/2016, 03/09/2021 Right lobe: 2.1 cm x 2.2 cm x 4.5 cm (w x ap x l). Volume: 10.7 cm3. Mildly enlarged thyroid lobe. Mild heterogeneity with a few subcentimeter thyroid nodules identified. One of these nodules is a colloid cyst. In the mid thyroid there is a 5 x 4 x 5 mm hypoechoic nodule which is been stable since at least 09/14/2020. No microcalcifications or echogenic foci. Left lobe: 1.4 cm x 2.3 cm x 4.7 cm (w x ap x l). Volume: 7.4 cm3. Normal size gland. There is a hypoechoic nodule with central punctate calcifications in the inferior pole. There is shadowing and irregular margins. This nodule measures 9.8 x 7 mm and has been present since 2017 with mild increase in size. This nodule also appears of undergone a prior biopsy. There ar e numerous features of this nodule is which are concerning for malignancy until proven otherwise. Add itional areas in the LEFT thyroid demonstrate mild change in the overall architecture. There is a col loid cyst in the lower pole. Isthmus: 0.5 cm. Large mildly heterogeneous isthmus towards the LEFT. US/US thyroid [id number] IMPRESSION: 1. TI-RADS 5. Mid LEFT thyroid nodule has multiple features concerning for mal ignancy. As per history this nodule has been previously biopsied. This thyroid nodule as been present since 2017 with mild increase in size. There are additio nal areas of heterogeneity within the LEFT thyroid. 2. Stable RIGHT thyroid.
== END 2022-12-27 10:57 | disposition home or self-care (01) ==
PROVIDERS: PCP Family Medicine; Visit Provider Otolaryngology
DX: E04.1 Nontoxic single thyroid nodule (principal)
CPT/HCPCS: 76536

== ENCOUNTER → 2023-01-02 13:25 | Outpatient (BNVA) | payer MEDICARE, OTHER, SELFPAY | PROVIDERS: PCP Family Medicine; Visit Provider Otolaryngology | DX: E04.1 Nontoxic single thyroid nodule (principal) | CPT/HCPCS: 99213 ==

== ENCOUNTER 2023-01-12 07:44 | Outpatient (CLI) | payer MEDICARE, OTHER, SELFPAY ==
--- NOTE | 2023-01-12 09:00 | US_ITS ---
WS: [email or web address] ULTRASOUND-GUIDED LEFT THYROID NODULE FNA HISTORY: Suspicious left thyroid nodule. Procedure, risks, and complications were explained to the patient. Consent has been obtained. Comparison: 12/27/2022 The skin is cleansed with ChloraPrep and anesthetized with 1% buffered lidocaine. FNA performed with 25 gauge needles. staff nuclear medicine technologist is present to fix slides. The suspicious lesion with jorge l cifications and variable echogenicity is targeted in the mid left thyroid. IMPRESSION: Uncomplicated FNA of a mid left thyroid nodule. Final pathology results pending.
== END 2023-01-12 07:45 | disposition home or self-care (01) ==
LOC: RAD 07:45
PROVIDERS: PCP Family Medicine; Visit Provider Otolaryngology
DX: E04.1 Nontoxic single thyroid nodule (principal)
CPT/HCPCS: 10005; 88173

== ENCOUNTER → 2023-01-18 15:14 | Outpatient (BNVA) | payer MEDICARE, OTHER, SELFPAY | PROVIDERS: PCP Family Medicine; Visit Provider Otolaryngology | DX: E04.1 Nontoxic single thyroid nodule (principal) | CPT/HCPCS: 99213 ==

== ENCOUNTER → 2023-01-26 11:18 | Outpatient (BNVA) | payer MEDICARE, OTHER, SELFPAY | PROVIDERS: PCP Family Medicine; Visit Provider Family Medicine | DX: E11.9 Type 2 diabetes mellitus without complications (principal) | CPT/HCPCS: 80053; 80061; 83036; 85025 ==

== ENCOUNTER → 2023-02-15 12:58 | Outpatient (BNVA) | payer MEDICARE, OTHER, SELFPAY | PROVIDERS: PCP Family Medicine; Visit Provider Internal Medicine | DX: E11.42 Type 2 diabetes mellitus with diabetic polyneuropathy (principal); I10 Essential (primary) hypertension; E04.1 Nontoxic single thyroid nodule; Z79.84 Long term (current) use of oral hypoglycemic drugs | CPT/HCPCS: 99214 ==

== ENCOUNTER 2023-02-17 11:41 | Outpatient (CLI) | payer MEDICARE, OTHER, SELFPAY ==
--- NOTE | 2023-02-17 12:38 | MM_ITS ---
WS: [id number] BILATERAL 3D TOMOSYNTHESIS DIGITAL SCREENING MAMMOGRAPHY WITH CAD CLINICAL INFORMATION: screening mammogram HISTORY: Screening mammogram. No current complaints. COMPARISON: 2018 TECHNIQUE: Bilateral CC and MLO views. FINDINGS: The breasts are composed of heterogeneous fibroglandular density tissue, which can limit the detectio n of small underlying mass lesions. No suspicious mass, asymmetry, calcifications, or architectural d istortion. No evidence of malignancy. Vascular calcification. IMPRESSION: MM/[place] [id number] BI-RADS: 2-Benign FOLLOW UP: 1 Year Follow-up Recommend return to annual screening mammography.
== END 2023-02-17 11:42 | disposition home or self-care (01) ==
PROVIDERS: PCP Family Medicine; Visit Provider Family Medicine
DX: Z12.31 Encounter for screening mammogram for malignant neoplasm of breast (principal)
CPT/HCPCS: 77063; 77067

== ENCOUNTER 2023-03-20 11:45 | Outpatient (CLI) | payer MEDICARE, OTHER, SELFPAY ==
--- NOTE | 2023-03-20 12:45 | US_ITS ---
WS: [email or web address] ULTRASOUND-GUIDED LEFT THYROID NODULE FNA HISTORY: Suspicious thyroid nodule. Rebiopsy from 2 months ago. Procedure, risks, and complications were explained to the patient. Consent has been obtained. The skin is cleansed with ChloraPrep and anesthetized with 1% buffered lidocaine. FNA performed with 25 gauge needles. imaging technologist is present to fix slides. Numerous fine-needle aspirations are performed of the hypoechoic mass with microcalcifications and ec hogenic foci in the mid LEFT thyroid. This mass has been recently biopsied. There are still concernin g features and possible extrathyroidal extension of this mass. Very anterior thyroid may have been br eached. IMPRESSION: Uncomplicated FNA of a LEFT thyroid nodule. Final pathology results pending.
== END 2023-03-20 11:46 | disposition home or self-care (01) ==
PROVIDERS: PCP Family Medicine; Visit Provider Otolaryngology
DX: E04.1 Nontoxic single thyroid nodule (principal)
CPT/HCPCS: 10005; 88173; 88305

== ENCOUNTER → 2023-03-29 09:16 | Outpatient (BNVA) | payer MEDICARE, OTHER, SELFPAY | PROVIDERS: PCP Family Medicine; Visit Provider Otolaryngology | DX: E04.1 Nontoxic single thyroid nodule (principal) | CPT/HCPCS: 99215 ==

== ENCOUNTER → 2023-05-23 07:52 | Outpatient (BNVA) | payer MEDICARE, OTHER, SELFPAY | PROVIDERS: PCP Family Medicine; Visit Provider Internal Medicine | DX: E11.42 Type 2 diabetes mellitus with diabetic polyneuropathy (principal); E04.1 Nontoxic single thyroid nodule; E78.5 Hyperlipidemia, unspecified; I10 Essential (primary) hypertension; Z79.84 Long term (current) use of oral hypoglycemic drugs | CPT/HCPCS: 99213; 99214 ==

== ENCOUNTER → 2023-09-07 08:45 | Outpatient (BNVA) | payer MEDICARE, OTHER, SELFPAY | PROVIDERS: PCP Family Medicine; Visit Provider Otolaryngology | DX: E04.1 Nontoxic single thyroid nodule (principal) | CPT/HCPCS: 99213; 99214 ==

== ENCOUNTER 2023-09-12 14:05 | Outpatient (CLI) | payer MEDICARE, OTHER, SELFPAY ==
--- NOTE | 2023-09-12 14:15 | US_ITS ---
WS: [email or web address] THYROID ULTRASOUND HISTORY: Thyroid Nodule COMPARISON: 03/20/2023, 12/27/2022, 09/14/2020 Right lobe: 2.6 cm x 1.8 cm x 4.3 cm (w x ap x l). Volume: 9.6 cm3. Normal sized gland. There are several colloid cysts which are benign. Spongiform nodule superior pole measures 1.0 x 0.4 x 0.9 cm. No change. No increased vascularity within the RIGHT thyroid. Left lobe: 1.8 cm x 2.4 cm x 4.6 cm (w x ap x l). Volume: 9.3 cm3. Normal sized gland. Reidentified is the hypoechoic nodule in the central gland with shadowing measure s 0.9 x 0.8 x 0.9 cm. This does have concerning features but has undergone biopsy twice but negative. Isthmus: 0.3 cm. IMPRESSION: 1. Stable hypoechoic nodule mid LEFT thyroid. Nodule is similar size to 09/14/2020. This nodule has u ndergone prior fine-needle aspiration x2 which were negative. As this nodule remains less than a cent imeter consider yearly evaluation by ultrasound. 2. Benign colloid and spongiform nodules RIGHT thyroid.
== END 2023-09-12 14:06 | disposition home or self-care (01) ==
LOC: RAD 14:05
PROVIDERS: PCP Family Medicine; Visit Provider Otolaryngology
DX: E04.1 Nontoxic single thyroid nodule (principal)
CPT/HCPCS: 76536

== ENCOUNTER → 2023-09-21 16:14 | Outpatient (BNVA) | payer MEDICARE, OTHER, SELFPAY | PROVIDERS: PCP Family Medicine; Visit Provider Otolaryngology | DX: E04.1 Nontoxic single thyroid nodule (principal); E04.2 Nontoxic multinodular goiter | CPT/HCPCS: 99212 ==

== ENCOUNTER 2024-01-24 12:51 | Outpatient (RCR) | payer MEDICARE, OTHER, SELFPAY | END 2024-02-03 18:00 | disposition home or self-care (01) | LOC: SPT 12:51 | PROVIDERS: PCP Family Medicine; Visit Provider Orthopaedic Surgery | DX: Z47.1 Aftercare following joint replacement surgery (principal); Z96.652 Presence of left artificial knee joint | CPT/HCPCS: 97110; 97161 ==

== ENCOUNTER 2024-02-04 06:52 | Outpatient (RCR) | payer MEDICARE, OTHER, SELFPAY | END 2024-03-04 23:59 | disposition home or self-care (01) | LOC: SPT 06:52 | PROVIDERS: PCP Family Medicine; Visit Provider Orthopaedic Surgery | DX: Z47.1 Aftercare following joint replacement surgery (principal); Z96.652 Presence of left artificial knee joint | CPT/HCPCS: 97110 ==

== ENCOUNTER 2024-03-05 06:00 | Outpatient (RCR) | payer MEDICARE, OTHER, SELFPAY | END 2024-04-04 23:59 | disposition home or self-care (01) | LOC: SPT 06:00 | PROVIDERS: PCP Family Medicine; Visit Provider Orthopaedic Surgery | DX: Z47.1 Aftercare following joint replacement surgery (principal); Z96.652 Presence of left artificial knee joint | CPT/HCPCS: 97110 ==

== ENCOUNTER 2024-04-05 06:00 | Outpatient (RCR) | payer MEDICARE, OTHER, SELFPAY | END 2024-04-11 23:59 | disposition home or self-care (01) | LOC: SPT 06:00 | PROVIDERS: PCP Family Medicine; Visit Provider Orthopaedic Surgery | DX: Z47.1 Aftercare following joint replacement surgery (principal); Z96.652 Presence of left artificial knee joint | CPT/HCPCS: 97110 ==

== ENCOUNTER → 2024-05-15 13:00 | Outpatient (BNVA) | payer MEDICARE, OTHER, SELFPAY | PROVIDERS: PCP Family Medicine; Visit Provider Podiatrist Foot & Ankle Surgery | DX: E11.8 Type 2 diabetes mellitus with unspecified complications (principal); E11.42 Type 2 diabetes mellitus with diabetic polyneuropathy; Z79.84 Long term (current) use of oral hypoglycemic drugs | CPT/HCPCS: 99213 ==

== ENCOUNTER → 2025-05-14 13:11 | Outpatient (BNVA) | payer MEDICARE, OTHER, SELFPAY | PROVIDERS: PCP Family Medicine; Visit Provider Podiatrist Foot & Ankle Surgery | DX: E11.8 Type 2 diabetes mellitus with unspecified complications (principal); E11.42 Type 2 diabetes mellitus with diabetic polyneuropathy; Z79.84 Long term (current) use of oral hypoglycemic drugs | CPT/HCPCS: 99213 ==